=== PATIENT | male | born 1990 | race Caucasian/White ===

== ENCOUNTER 2021-12-06 15:54 | Outpatient (CLI) | payer OTHER, SELFPAY ==
--- NOTE | ~2021-12-06 | MR_ITS ---
EXAMINATION: MR knee RT wo con DATE: 12/06/2021 16:46 INDICATION: Right knee pain x3 weeks. Walking down stairs and heard a popping sound followed by pain. TECHNIQUE: Magnetic resonance imaging (MRI) of the right knee was performed without intravenous contr ast. Sequences included axial PD-weighted FS FSE, coronal PD-weighted FSE and PD-weighted FS FSE, sag ittal PD-weighted FSE, and sagittal T2-weighted FS FSE. COMPARISON: None. FINDINGS: Medial compartment: Meniscus and cartilage intact. Lateral compartment: Meniscus and cartilage intact. Patellofemoral compartment: Mild partial thickness cartilage signal abnormality. Retinacula intact. Ligaments and tendons: Intact. Fluid: No significant joint effusion or fluid collection. Osseous/other: 1.4 x 0.6 cm nonaggressive appearing medullary lesion in the metadiaphysis of the distal right femur. Marrow signal is otherwise benign and homogenous. IMPRESSION: 1. 1.4 cm nonaggressive appearing medullary lesion in distal right femur, which may represent a small bone infarct or enchondroma. Recommend radiographs of the right knee for further characterization. 2. No internal derangement. Reviewed, dictated and finalized at location K. IMPRESSION: 1. 1.4 cm nonaggressive appearing medullary lesion in distal right femur, which may represent a small bone infarct or enchondroma. Recommend radiographs of th e right knee for further characterization. 2. No internal derangement.
== END 2021-12-06 15:55 ==
PROVIDERS: PCP Internal Medicine; Visit Provider Nurse Practitioner Family
DX: M25.561 Pain in right knee (principal)
CPT/HCPCS: 73721

== ENCOUNTER 2023-09-06 15:25 | Observation (INO) | payer OTHER, SELFPAY ==
[2023-09-06 15:57] VITALS: BP 143/87; PULSE 100; RESP 15; TEMP 36.4; O2SAT 97
--- NOTE | 2023-09-06 15:59 | ED.EXTPRO ---
HPI - Extremity Problem General Chief complaint: Wound/Laceration <ALISHA Sánchez Last Filed: 09/11/23 10:16> Stated complaint: spider bite to leg <ALISHA Sánchez Last Filed: 09/11/23 10:16> Time Seen by Provider: 09/06/23 15:59 <Anna Childers PA-C - Last Filed: 09/11/23 10:16> Focused HPI: This is a 33-year-old male that presents to the emergency department for left lower extremity redness and swelling. Ongoing since yesterday. Reports he thought he was maybe bitten by a spider. Reports the redness has continued to spread which prompted him to be seen. Denies fevers. GENERAL: Well-appearing, well-nourished, and in no acute distress. HEAD: Normocephalic, atraumatic. CHEST: Clear to auscultation. ?No respiratory distress. HEART: Regular rate and rhythm.? NEURO: ?Alert and oriented x3. Patient screened in triage and initial orders placed.? ?Additional care and disposition to be based upon?diagnostic testing and treatment. <Anna Childers PA-C - Last Filed: 09/11/23 10:16> History of Present Illness HPI Narrative: 33-year-old male presents to the emergency department for redness, swelling and pain to his left knee that extends up his leg and concern for a spider bite. Patient states yesterday around 2 in afternoon he was working outside when he leaned up against something in the garage and felt a tender spot. Since then he has had developing redness and warmth that has spread up his leg. he abi a line around the redness this afternoon and and has significantly spread since which prompted him to come to the ED. He denies fever or vomiting but does endorse some nausea and fatigue. Last Tdap is unknown. <Sarah Chance PA-C - Last Filed: 09/06/23 18:50> Related Data Allergies/Adverse reactions: Allergies Allergy/AdvReac Type Severity Reaction Status Date / Time No Known Allergies Allergy Unverified 09/10/23 14:01 <ALISHA Sánchez Last Filed: 09/11/23 10:16> Review of Systems Review of Systems: CONSTITUTIONAL: Denies fever, chills, or sweats. EYES: Denies visual changes, redness, or discharge. ENT: Denies rhinorrhea, congestion, sore throat, or otalgia. CARDIOVASCULAR: Denies chest pain, palpitations, or edema. RESPIRATORY: Denies cough or dyspnea. GASTROINTESTINAL: Denies abdominal pain, nausea, vomiting, or diarrhea. GENITOURINARY: Denies dysuria or hematuria. SKIN: See HPI MUSCULOSKELETAL: Denies back pain, joint pain, or myalgia. NEUROLOGIC: Denies headache, numbness, or weakness. PSYCHIATRIC: Denies anxiety or depression. <Sarah Chance PA-C - Last Filed: 09/06/23 18:50> FORMERLY [facility], [facility] Past Medical History Medical History: Medical History (Updated 09/10/23 @ 14:14 by Antoinette Garcia PA-C) PAULIE (generalized anxiety disorder) IFG (impaired fasting glucose) <Anna Childers PA-C - Last Filed: 09/11/23 10:16> Surgical History Surgical History: Surgical History History of arthroscopic knee surgery right <Anna Childers PA-C - Last Filed: 09/11/23 10:16> Family History Family History: Family History Mother Hypertension Depression Sibling Heart disease Depression <Anna Childers PA-C - Last Filed: 09/11/23 10:16> Social History Social History: Social History Smoking status: Never smoker Second hand tobacco smoke exposure: No Alcohol intake: current Drinks per week: 8 Substance use: current Substance use type: marijuana Last use: 4 days ago Do You Feel Safe in your Home?: Yes Lack of Transportation: No Lack of Food: Never True Current Housing: I Have Housing Concerned About Future Housing: No Difficulty Paying Gas/Electric Bills: No Difficulty Paying for Meds: No Currently Unemployed: No Education: Associate Deg
[2023-09-06 17:08] LABS: Basophils Percent Auto 0.2 % (0.2-1.2); Eosinophils Absolute Auto 0.7 K/mm3 (0-0.3); Eosinophils Percent Auto 8.5 % (0-4.4); Hematocrit 43.7 % (42.0-52.0); Immature Granulocyte Absolute 0.02 K/mm3 (0.00-0.031); Immature Granulocyte Percent A 0.2 % (0-0.5); Lymphocytes Absolute Auto 1.57 K/mm3 (0.9-3.2); Lymphocytes Percent Auto 18.9 % (18.3-44.2); Mean Corpuscular HGB Conc 34.3 g/dl (32-36); Mean Corpuscular Hemoglobin 29.6 pg (26-34); Mean Corpuscular Volume 86.4 fl (80-100); Mean Platelet Volume 10.3 fl (7.4-10.4); Monocytes Absolute Auto 0.6 K/mm3 (0.1-0.6); Monocytes Percent Auto 6.6 % (2.6-8.5); Neutrophils Absolute Auto 5.5 K/mm3 (1.3-6.7); Neutrophils Percent Auto 65.6 % (45.5-73.1); Platelet Count Result 247 k/mm3 (150-375); Red Blood Count 5.06 M/mm3 (4.6-6.20); Red Cell Distribution Width 11.9 % (11.5-14.5); White Blood Count 8.3 K/mm3 (4.5-10.0)
[2023-09-06 17:20] LABS: Anion Gap 12 mmol/L (4-12); Blood Urea Nitrogen 14 mg/dL (9-20); CRP 4.4 mg/dL (<1.0); Calcium 9.4 mg/dL (8.4-10.2); Carbon Dioxide 25 mmol/L (22-30); Chloride 104 mmol/L (98-107); Estimated CRCL calculation 114 ml/min; Estimated Glomerular Filt Rate > 60; Glucose 146 mg/dL (65-110); Sodium 141 mmol/L (137-145)
[2023-09-06 18:02] LABS: Erythrocyte Sedimentation Rate 14 mm/hr (0-20)
[2023-09-06] MEDS: TETANUS,DIPHTHERIA,AC PERTUSSIS ADULT (0.5 ML) BOOSTRIX IM (19:13)
[2023-09-06] MEDS: ceFAZolin 1 GM/NS 50 ML 1 GM/50 ML BAG IVPB (19:14)
--- NOTE | 2023-09-06 19:16 | PM.IMHP ---
H&P: HPI History of Present Illness Date/Time: 09/06/23 19:16 Chief Complaint: Wound to Lower Extremity Narrative: 33 y/o M presents here with a wound to his LLE with PMH of PAULIE. The patient presents here from home for further evaluation of a wound to his LLE. Patient believes the wound may be due to a spider bite. First noted the wound on 09/04 . 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 PAtient then went to the restroom to insept the area and noted a welt the size of a quarter to his left knee without head to region or drainage around 2 pm. Patient then abi a line to [facility] this morning around 0800 and later today noted around 3 pm that the redness had tracked up his thigh prompting him to seek care. Wound accompanied by intermittent/mild diaphoresis. Denying fever, chills, or body aches. TDap was updated, unknown when last had vaccination. Initial VS at presentation: 97.6? F, HR 100, RR 15, 143/87, 97% on RA. ED workup showed: Clear no leukocytosis, no anemia, no significant electrolyte derangements, creatinine 0.9 and GFR >60, glucose 146, and CRP 4.4. Review of Systems Review of Systems: All systems reviewed & are unremarkable except as noted in HPI and below PMFSH Past Medical History Medical History PAULIE (generalized anxiety disorder) Surgical History Surgical History History of arthroscopic knee surgery right Family History Family History Mother Hypertension Depression Sibling Heart disease Depression Social History Social History Smoking status: Never smoker Second hand tobacco smoke exposure: No Alcohol intake: current Drinks per week: 8 Substance use: current Substance use type: marijuana Last use: 4 days ago Do You Feel Safe in your Home?: Yes Lack of Transportation: No Lack of Food: Never True Current Housing: I Have Housing Concerned About Future Housing: No Difficulty Paying Gas/Electric Bills: No Difficulty Paying for Meds: No Currently Unemployed: No Education: Associate Degree Difficulty w/ Childcare or Family Care: No Living arrangements: with family Occupation/Education: occupation Gender identity (if verbalized by the patient): Male Spiritual care concerns: No Meds Home Medications and Allergies Home Medications Medication Instructions Recorded Confirmed Type buspirone 7.5 mg tablet 7.5 mg PO BID #180 tabs 07/12/23 09/06/23 Rx escitalopram oxalate 10 mg tablet 10 mg PO DAILY #90 tabs 07/17/23 09/06/23 Rx (Lexapro) Allergies Allergy/AdvReac Type Severity Reaction Status Date / Time No Known Allergies Allergy Unverified 07/11/23 15:31 Vital Signs Vital Signs - 24 hr 09/06/23 15:57 Temperature 97.6 F Pulse Rate 100 Respiratory Rate 15 Blood Pressure 143/87 H Pulse Oximetry 97 Oxygen Delivery Room Air Exam Const: General: comfortable and no acute distress Other: , male, nontoxic appearance HENMT: Face/Nose/Sinus: Normal nares present Mouth: Yes moist mucous membranes Eyes: General: appearance normal, both eyes and all related structures Sclera: sclerae normal Pupils: Equal, round and reactive pupils present Resp: Effort & Inspection: normal respiratory effort Auscultation: clear to auscultation bilaterally Cardio: Rate: regular rate Rhythm: regular rhythm Skin: General skin exam: normal color and erythema Other: 2 small shallow puncture wounds to left knee with surrounding erythema with poor demarcation line that extends to anterior thigh up to groin. Neuro: Speech: normal speech Motor exam (neuro): 5/5 motor strength present thro
[2023-09-06 19:21] LABS: Lactic Acid Reflex 0.9 mmol/L (0.7-2.0)
[2023-09-06 20:03] VITALS: BP 131/89; PULSE 99; RESP 18; TEMP 37.3; O2SAT 100
[2023-09-06 20:50] LABS: Hemoglobin A1C 5.9 % (<5.7)
[2023-09-06 21:00] VITALS: BP 155/85; PULSE 87; RESP 14; TEMP 36.9; O2SAT 98; BMI 30.4
--- NOTE | 2023-09-06 21:00 | ADMGEN ---
This patient, Mamta Luis III, was admitted to [facility] Surg Room 329-01. Patient/family oriented to hospital policies and general routines including ID bracelet, bed and alarms, visiting hours, pain management, procedures, bathroom and other care routines, personal items, smoking policy, room service/diet, and visiting hours. Information on how to activate the Rapid Response Team has been discussed. Patient/Family are encouraged to report perceived risks to care and to ask questions if they do not understand what they are told or what they should do.
[2023-09-06] MEDS: KETOROLAC 30 MG/ML VIAL (*BKC) IV PUSH (22:17)
[2023-09-07] MEDS: ceFAZolin 1 GM/NS 50 ML 1 GM/50 ML BAG IVPB ×3 (02:47→18:33)
[2023-09-07 05:55] VITALS: BP 105/60; PULSE 76; RESP 12; TEMP 36.7; O2SAT 98
[2023-09-07 06:51] LABS: Basophils Percent Auto 0.3 % (0.2-1.2); Eosinophils Absolute Auto 0.8 K/mm3 (0-0.3); Eosinophils Percent Auto 7.3 % (0-4.4); Hematocrit 41.3 % (42.0-52.0); Hemoglobin 13.9 g/dL (14.0-18.0); Immature Granulocyte Absolute 0.02 K/mm3 (0.00-0.031); Immature Granulocyte Percent A 0.2 % (0-0.5); Lymphocytes Absolute Auto 1.74 K/mm3 (0.9-3.2); Lymphocytes Percent Auto 16.8 % (18.3-44.2); Mean Corpuscular HGB Conc 33.7 g/dl (32-36); Mean Corpuscular Hemoglobin 29.4 pg (26-34); Mean Corpuscular Volume 87.3 fl (80-100); Mean Platelet Volume 10.2 fl (7.4-10.4); Monocytes Absolute Auto 0.8 K/mm3 (0.1-0.6); Neutrophils Percent Auto 67.4 % (45.5-73.1); Platelet Count Result 248 k/mm3 (150-375); Red Blood Count 4.73 M/mm3 (4.6-6.20); Red Cell Distribution Width 11.8 % (11.5-14.5); White Blood Count 10.4 K/mm3 (4.5-10.0)
[2023-09-07 07:07] LABS: Alanine Aminotransferase 29 U/L (6-50); Albumin Level 4.5 g/dL (3.5-5.1); Alkaline Phosphatase 73 U/L (38-126); Anion Gap 8 mmol/L (4-12); Aspartate Amino Transferase 24 U/L (17-59); Bilirubin,Total 0.9 mg/dL (0.2-1.3); Blood Urea Nitrogen 17 mg/dL (9-20); CRP 5.3 mg/dL (<1.0); Calcium 9.1 mg/dL (8.4-10.2); Carbon Dioxide 26 mmol/L (22-30); Chloride 104 mmol/L (98-107); Estimated CRCL calculation 114 ml/min; Estimated Glomerular Filt Rate > 60; Glucose 131 mg/dL (65-110); Potassium 4.3 mmol/L (3.4-5.0); Sodium 138 mmol/L (137-145)
[2023-09-07] MEDS: ESCITALOPRAM OXALATE 10 MG TABLET PO (08:53)
[2023-09-07] MEDS: busPIRone HCL 5 MG TABLET PO ×2 (08:53→16:48)
[2023-09-07] MEDS: busPIRone HCL 2.5 MG TABLET PO ×2 (08:54→16:48)
[2023-09-07] MEDS: HYDROcodone/acetaminophen (*CRX) 5-325 MG TABLET 1 TAB PO ×2 (08:57→20:29)
--- NOTE | 2023-09-07 09:41 | PM.IMPN ---
Progress Note: A&P Assessment and Plan (1) Cellulitis: Qualifiers: Laterality: left Site of cellulitis: extremity Site of cellulitis of extremity: lower extremity Qualified Code(s): L03.116 - Cellulitis of left lower limb Code(s): L03.90 - Cellulitis, unspecified Status: Acute Assessment and Plan: - did not meet SIRS criteria (HR only), blood cultures were obtained - initial injury/bite unknown, discovered on 09/05 - started on Ancef on 09/05 - wound culture ordered if obtainable - wound marked to track progression of erythema - IV fluids - monitor labs (2) Hyperglycemia: Code(s): R73.9 - Hyperglycemia, unspecified Status: Acute Assessment and Plan: - glucose 147 - check A1C: 5.9% - no prior hx of DM, FH of DM (paternal grandfather, believes there are more) - educated on A1C level and prediabetes diagnosis, provided education on lifestyle modifications to help reduce his A1C Plan Patient here with wound his left leg that he sustained yesterday (09/04) and has been rapidly spreading. Ancef started. Wound culture ordered if obtainable. educated on new diagnosis of prediabetes. Diet: heart healthy GI Prophylaxis: not currently indicated DVT Prophylaxis: low risk Lines: peripheral Code Status: full code Time Spent With Patient Time with patient: 25 - 35 minutes Subjective Date/time seen: 09/07/23 09:41 Interval history: 33 y/o M with PAULIE admitted for LLE wound. note retrieved from h/p: The patient presents here from home for further evaluation of a wound to his LLE. Patient believes the wound may be due to a spider bite. First noted the wound on 09/04 . 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 Patient then went to the restroom to insept the area and noted a welt the size of a quarter to his left knee without head to region or drainage around 2 pm. Patient then abi a line to [facility] this morning around 0800 and later today noted around 3 pm that the redness had tracked up his thigh prompting him to seek care. Wound accompanied by intermittent/mild diaphoresis. Denying fever, chills, or body aches. TDap was updated, unknown when last had vaccination. Initial VS at presentation: 97.6? F, HR 100, RR 15, 143/87, 97% on RA. ED workup showed: Clear no leukocytosis, no anemia, no significant electrolyte derangements, creatinine 0.9 and GFR >60, glucose 146, and CRP 4.4. 09/06- pt is seen and examined today. On IV ancef (start day09/05). Wound is marked. Pt is alert, pain, free, no chest pain, no sob, no n/v/d. Review of Systems Review of Systems: All systems reviewed & are unremarkable except as noted in HPI and below Exam Const: General: comfortable and no acute distress Other: , male, nontoxic appearance HENMT: Face/Nose/Sinus: Normal nares present Mouth: Yes moist mucous membranes Eyes: General: appearance normal, both eyes and all related structures Sclera: sclerae normal Pupils: Equal, round and reactive pupils present Resp: Effort & Inspection: normal respiratory effort Auscultation: clear to auscultation bilaterally Cardio: Rate: regular rate Rhythm: regular rhythm Skin: General skin exam: normal color and erythema Other: 2 small shallow puncture wounds to left knee with surrounding erythema with poor demarcation line that extends to anterior thigh up to groin. Neuro: Cranial nerves: Yes Equal, round and reactive pupils present Speech: normal speech Motor exam (neuro): 5/5 motor strength present throughout Sensory Exam: normal sensation Other: A&O x4 Extrem: General: normal exam except as noted Psych: Mental Status: mental status grossly normal Affect: normal affect Other: good insight judgment, pleasant Objective Data Vital Signs Vital Signs: Vital Signs - 24 hr 09/06/23 15:57 06
[2023-09-07] MEDS: hydrOXYzine HCL 10 MG TABLET PO (13:16)
[2023-09-07 14:00] VITALS: BP 151/86; PULSE 95; RESP 20; TEMP 36.8; O2SAT 92
[2023-09-07] MEDS: ACETAMINOPHEN 500 MG TABLET PO (15:49)
[2023-09-07 21:26] VITALS: BP 126/73; PULSE 84; RESP 16; TEMP 36.2; O2SAT 98
--- NOTE | 2023-09-07 22:45 | PC.NURSE ---
I have read and reviewed Inge Saleh's assessment and agree with her documentation.
[2023-09-08] MEDS: ceFAZolin 1 GM/NS 50 ML 1 GM/50 ML BAG IVPB ×2 (02:55→09:36)
[2023-09-08 06:00] VITALS: BP 120/65; PULSE 80; RESP 16; TEMP 36.4; O2SAT 99
[2023-09-08 08:00] VITALS: PULSE 80; RESP 16; O2SAT 99
--- NOTE | 2023-09-08 09:26 | PM.IMPN ---
Progress Note: A&P Assessment and Plan (1) Cellulitis: Qualifiers: Laterality: left Site of cellulitis: extremity Site of cellulitis of extremity: lower extremity Qualified Code(s): L03.116 - Cellulitis of left lower limb Code(s): L03.90 - Cellulitis, unspecified Status: Acute Assessment and Plan: - did not meet SIRS criteria (HR only), blood cultures were obtained - initial injury/bite unknown, discovered on 09/05 - started on Ancef on 09/05 - wound culture ordered if obtainable - wound marked to track progression of erythema - IV fluids - monitor labs (2) Hyperglycemia: Code(s): R73.9 - Hyperglycemia, unspecified Status: Acute Assessment and Plan: - glucose 147 - check A1C: 5.9% - no prior hx of DM, FH of DM (paternal grandfather, believes there are more) - educated on A1C level and prediabetes diagnosis, provided education on lifestyle modifications to help reduce his A1C Plan Patient here with wound his left leg that he sustained yesterday (09/04) and has been rapidly spreading. Ancef started. Wound culture ordered if obtainable. educated on new diagnosis of prediabetes. Diet: heart healthy GI Prophylaxis: not currently indicated DVT Prophylaxis: low risk Lines: peripheral Code Status: full code Time Spent With Patient Time with patient: 25 - 35 minutes Subjective Date/time seen: 09/08/23 09:26 Interval history: 33 y/o M with PAULIE admitted for LLE wound. note retrieved from h/p: The patient presents here from home for further evaluation of a wound to his LLE. Patient believes the wound may be due to a spider bite. First noted the wound on 09/04 . 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 Patient then went to the restroom to inspect the area and noted a felt the size of a quarter to his left knee without head to region or drainage around 2 pm. Patient then abi a line to [facility] this morning around 0800 and later today noted around 3 pm that the redness had tracked up his thigh prompting him to seek care. Wound accompanied by intermittent/mild diaphoresis. Denying fever, chills, or body aches. TDap was updated, unknown when last had vaccination. Initial VS at presentation: 97.6? F, HR 100, RR 15, 143/87, 97% on RA. ED workup showed: Clear no leukocytosis, no anemia, no significant electrolyte derangements, creatinine 0.9 and GFR >60, glucose 146, and CRP 4.4. 09/06- pt is seen and examined today. On IV ancef (start day09/05). Wound is marked. Pt is alert, pain, free, no chest pain, no sob, no n/v/d. 09/07- pt is seen and examined. Slight increase in wbc and crp. BLood cultures negative. On cefazolin Review of Systems Review of Systems: All systems reviewed & are unremarkable except as noted in HPI and below Exam Const: General: comfortable and no acute distress Other: , male, nontoxic appearance HENMT: Face/Nose/Sinus: Normal nares present Mouth: Yes moist mucous membranes Eyes: General: appearance normal, both eyes and all related structures Sclera: sclerae normal Pupils: Equal, round and reactive pupils present Resp: Effort & Inspection: normal respiratory effort Auscultation: clear to auscultation bilaterally Cardio: Rate: regular rate Rhythm: regular rhythm Skin: General skin exam: normal color and erythema Other: 2 small shallow puncture wounds to left knee with surrounding erythema with poor demarcation line that extends to anterior thigh up to groin. Neuro: Cranial nerves: Yes Equal, round and reactive pupils present Speech: normal speech Motor exam (neuro): 5/5 motor strength present throughout Sensory Exam: normal sensation Other: A&O x4 Extrem: General: normal exam except as noted Psych: Mental Status: mental status grossly normal Affect: normal affect Other: good insight judgm
[2023-09-08] MEDS: busPIRone HCL 5 MG TABLET PO (09:36)
[2023-09-08] MEDS: ESCITALOPRAM OXALATE 10 MG TABLET PO (09:36)
[2023-09-08] MEDS: busPIRone HCL 2.5 MG TABLET PO (09:36)
[2023-09-08] MEDS: SACCHAROMYCES BOULARDII 250 MG CAPSULE PO (12:52)
--- NOTE | 2023-09-08 12:55 | PM.DS ---
DS: Admitting Diagnosis Discharge Date 09/07 Admitting Diagnosis spider bite DS: Discharge Diagnosis Discharge Diagnosis (1) Cellulitis: Qualifiers: Laterality: left Site of cellulitis: extremity Site of cellulitis of extremity: lower extremity Qualified Code(s): L03.116 - Cellulitis of left lower limb Code(s): L03.90 - Cellulitis, unspecified Status: Acute Assessment and Plan: - did not meet SIRS criteria (HR only), blood cultures were obtained - initial injury/bite unknown, discovered on 09/05 - started on Ancef on 09/05 - wound culture ordered if obtainable - wound marked to track progression of erythema - IV fluids-switched to po - monitor labs (2) Hyperglycemia: Code(s): R73.9 - Hyperglycemia, unspecified Status: Acute Assessment and Plan: - glucose 147 - check A1C: 5.9% - no prior hx of DM, FH of DM (paternal grandfather, believes there are more) - educated on A1C level and prediabetes diagnosis, provided education on lifestyle modifications to help reduce his A1C Plan final dx: CELLULITIS Patient here with wound his left leg that he sustained yesterday (09/04) and has been rapidly spreading. Ancef started. Wound culture ordered if obtainable. educated on new diagnosis of prediabetes. Diet: heart healthy GI Prophylaxis: not currently indicated DVT Prophylaxis: low risk Lines: peripheral Code Status: full code DS: Summary Hospital Course Hospital Course: The patient presents here from home for further evaluation of a wound to his LLE. Patient believes the wound may be due to a spider bite. First noted the wound on 09/04 . 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 Patient then went to the restroom to insept the area and noted a welt the size of a quarter to his left knee without head to region or drainage around 2 pm. Patient then abi a line to [facility] this morning around 0800 and later today noted around 3 pm that the redness had tracked up his thigh prompting him to seek care. Wound accompanied by intermittent/mild diaphoresis. Denying fever, chills, or body aches. TDap was updated, unknown when last had vaccination. Initial VS at presentation: 97.6? F, HR 100, RR 15, 143/87, 97% on RA. ED workup showed: Clear no leukocytosis, no anemia, no significant electrolyte derangements, creatinine 0.9 and GFR >60, glucose 146, and CRP 4.4. 09/06- pt is seen and examined today. On IV ancef (start day09/05). Wound is marked. Pt is alert, pain, free, no chest pain, no sob, no n/v/d. Status at Discharge Functional status at discharge: independent ambulation Overall status at discharge: patient is back to baseline Time Spent with Patient Time attestation: Total time spent providing and/or coordinating discharge services: Time spent: Less than 30 minutes Exam Narrative: erythema is improving Const: General: comfortable and no acute distress Other: , male, nontoxic appearance HENMT: Face/Nose/Sinus: Normal nares present Mouth: Yes moist mucous membranes Eyes: General: appearance normal, both eyes and all related structures Sclera: sclerae normal Pupils: Equal, round and reactive pupils present Resp: Effort & Inspection: normal respiratory effort Auscultation: clear to auscultation bilaterally Cardio: Rate: regular rate Rhythm: regular rhythm Skin: General skin exam: normal color and erythema Other: 2 small shallow puncture wounds to left knee with surrounding erythema- improved about 50-70% from the original presentation Neuro: Cranial nerves: Yes Equal, round and reactive pupils present Speech: normal speech Motor exam (neuro): 5/5 motor strength present throughout Sensory Exam: normal sensation Other: A&O x4 Extrem: General: normal exam except as noted Psych: Mental Status: mental status grossly norm
[2023-09-08 14:00] VITALS: BP 141/84; PULSE 84; RESP 14; TEMP 36.2; O2SAT 97
== END 2023-09-08 15:00 | disposition home or self-care (01) ==
LOC: ANHED 18:48 → ANH3MEDSUR 20:43
PROVIDERS: Physician Assistant; Student in an Organized Health Care Education/Training Program; Admitting Provider Hospitalist; Emergency Provider Physician Assistant; PCP Family Medicine; Visit Provider Hospitalist
DX: L03.116 Cellulitis of left lower limb (principal); R73.9 Hyperglycemia, unspecified; Z23 Encounter for immunization
CPT/HCPCS: 36415; 80048; 80053; 83036; 83605; 85025; 85652; 86140; 87040; 90471; 90715; 96365; 96375; 96376; 99285; A9270; G0378; J0690; J1885

== ENCOUNTER 2023-09-13 14:58 | Outpatient (CLI) | payer OTHER, SELFPAY ==
[2023-09-13 15:27] LABS: Basophils Absolute Auto 0.1 K/mm3 (0.0-0.1); Basophils Percent Auto 1.2 % (0.2-1.2); Eosinophils Absolute Auto 1.3 K/mm3 (0-0.3); Eosinophils Percent Auto 16.5 % (0-4.4); Hemoglobin 13.6 g/dL (14.0-18.0); Immature Granulocyte Absolute 0.03 K/mm3 (0.00-0.031); Immature Granulocyte Percent A 0.4 % (0-0.5); Lymphocytes Percent Auto 33.5 % (18.3-44.2); Mean Corpuscular Hemoglobin 29.4 pg (26-34); Mean Corpuscular Volume 86.6 fl (80-100); Mean Platelet Volume 10.3 fl (7.4-10.4); Monocytes Absolute Auto 0.6 K/mm3 (0.1-0.6); Monocytes Percent Auto 7.2 % (2.6-8.5); Neutrophils Absolute Auto 3.3 K/mm3 (1.3-6.7); Neutrophils Percent Auto 41.2 % (45.5-73.1); Platelet Count Result 324 k/mm3 (150-375); Red Blood Count 4.62 M/mm3 (4.6-6.20); Red Cell Distribution Width 11.7 % (11.5-14.5); White Blood Count 8.1 K/mm3 (4.5-10.0)
== END 2023-09-13 14:59 | disposition home or self-care (01) ==
LOC: ANHLAB 14:59
PROVIDERS: PCP Family Medicine; Visit Provider Physician Assistant Medical
DX: D72.829 Elevated white blood cell count, unspecified (principal); L03.90 Cellulitis, unspecified
CPT/HCPCS: 36415; 85025

== ENCOUNTER 2023-12-07 08:34 | Outpatient (CLI) | payer OTHER, SELFPAY ==
[2023-12-07 09:17] LABS: Basophils Absolute Auto 0.1 K/mm3 (0.0-0.1); Basophils Percent Auto 0.8 % (0.2-1.2); Eosinophils Absolute Auto 0.4 K/mm3 (0-0.3); Eosinophils Percent Auto 5.8 % (0-4.4); Hematocrit 43.3 % (42.0-52.0); Hemoglobin 14.4 g/dL (14.0-18.0); Immature Granulocyte Absolute 0.01 K/mm3 (0.00-0.031); Immature Granulocyte Percent A 0.2 % (0-0.5); Lymphocytes Absolute Auto 2.17 K/mm3 (0.9-3.2); Lymphocytes Percent Auto 35.9 % (18.3-44.2); Mean Corpuscular HGB Conc 33.3 g/dl (32-36); Mean Corpuscular Hemoglobin 29.6 pg (26-34); Mean Corpuscular Volume 89.1 fl (80-100); Mean Platelet Volume 10.3 fl (7.4-10.4); Monocytes Absolute Auto 0.4 K/mm3 (0.1-0.6); Monocytes Percent Auto 6.6 % (2.6-8.5); Neutrophils Absolute Auto 3.1 K/mm3 (1.3-6.7); Neutrophils Percent Auto 50.7 % (45.5-73.1); Platelet Count Result 285 k/mm3 (150-375); Red Blood Count 4.86 M/mm3 (4.6-6.20); Red Cell Distribution Width 11.9 % (11.5-14.5)
[2023-12-07 11:33] LABS: Iron 114 ug/dL (49-181)
[2023-12-07 11:48] LABS: Percent Iron Saturation 31 % (20-50)
== END 2023-12-07 08:35 | disposition home or self-care (01) ==
LOC: ANHLAB 08:36
PROVIDERS: PCP Family Medicine; Referring Provider Student in an Organized Health Care Education/Training Program; Visit Provider Physician Assistant Medical
DX: E03.9 Hypothyroidism, unspecified (principal); D64.9 Anemia, unspecified; R53.83 Other fatigue
CPT/HCPCS: 36415; 82607; 82728; 83540; 83550; 84443; 85025

== ENCOUNTER 2024-05-08 15:36 | Outpatient (CLI) | payer OTHER, SELFPAY ==
--- OUTSIDE RECORDS SUMMARY | 2024-05-08 15:39 | XMS_ITS ---
Author Organization [facility] As The Author Hub Address [address] [facility] [address] [place] [address] Care Team Providers Care Railcar Switcher Name Role Phone Fadi Ramirez MD Primary Care Provider Kate Barrios Unavailable [phone] REAL HARMON PA-C Unavailab le Allergies No Known Allergies REASON FOR VISIT fmla, last couple weeks have been a little rough Medications Medication SIG (Take, Route, Frequency, Duration) Notes Start Date End Date Status oxyCODONE HCl 5 MG Oral for 6 Days Not-Taking HYDROcodone-Acetamino phen 5-325 MG TAKE 1-2 TABLETS BY MOUTH EVERY 8 HOURS NEEDED FOR PAIN Oral for 6 Days Not-Taking oxyCODONE HCl 5 MG TAKE 1-2 TABLETS BY MOUTH EVERY 6 HOURS NEEDED FOR PAIN Oral for 6 Days Not-Taking Meloxicam 15 MG TAKE 1 TABLET BY MOUTH EVERY DAY Oral for 30 Days Not-Taking HYDROcodone-Acetamino phen 5-325 MG Oral for 6 Days Not-Taking Sulfamethoxazole-Trim ethoprim 800-160 MG Oral for 5 Days Not-T aking Escitalopram Oxalate 10 MG TAKE 1 TABLET BY MOUTH DAILY Oral for 30 Days Not-Taking Venlafaxine HCl ER 37.5 MG 1 capsule with food Orally Once a day for 14 days 11/09/2023 Not-Taking Sulfamethoxazole-Trim ethoprim 800-160 MG TAKE 1 TABLET BY MOUTH EVERY 12 HOURS Oral for 5 Days Not-Taking busPIRone HCl 10 MG 1 tablet Oral three times a day for 90 days 11/15/2023 07/13/2024 Active Escitalopram Oxalate 20 MG 1 tablet Oral once a day for 90 days Active Venlafaxine HCl ER 75 MG 1 capsule in the morning Orally Once a day for 90 days Active hydrOXYzine HCl 25 MG 1 tablet Orally three times a day for 90 days As needed Active Meloxicam 15 MG 1 tablet Oral Once a day for 30 days Active ARIPiprazole 5 MG 1 tablet Orally Once a day for 30 days d/c Seroquel 05/06/2024 Active Social History Tobacco Use: Social History Observation Description Date Details (start date - stop date) Never Smoker NA - NA Sex Assigned At : Social History Observation Description Sex Assigned At Male Household Question Answer Notes Marital status: single Number of adults in household: 2 l maira with mother Number of children in household: 0 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 Yes How often did you have six o r more drinks on one occasion in the past year? 2 to 4 times a month (2 points) How many drinks did you have on a typical day when you were drinking in the past year? 10 or more drinks (4 points) How often did you have a dri nk containing alcohol in the past year? 2 to 4 times a month (2 points) Points 8 Interpretation Positive Vital Signs Blood pressure systolic 137 mm Hg 05/06/19 25 Blood pressure diastolic 95 mm Hg 025 Heart Rate 92 /min 05/06/2024 Height 69 in 05/06/2024 Weight 216.8 lbs 05/06/2024 BMI 32.01 kg/m2 05/06/2024 Height-cm 175.26 cm 05/06/2024 Weight-kg 98.34 kg 05/06/2024 Encounters Encounter Location Date Provider Diagnosis [facility] [employer] [facility] [address] [address] 05/06/2024 Kate Black PAULIE (generalized anxiety disorder) F41.1 ; MDD (major depressive disorder), recurrent episode, moderate F33.1 ; Primary insomnia F51.01 ; Marijuana use F12.90 ; Panic attack F41.0 and Elevated blood pressure reading R03.0 Assessments Encounter Date Diagnosis (ICD Code) Assessment Notes Treatment Notes Treatment Clinical Notes Section Notes 05/06/2024 PAULIE (generalized anxiety disorder) (ICD-10 - F41.1) Learning About Generalized Anxiety Disorder material was published, Generalized Anxiety Disorder: Care Instructions material was published, Learning About Transcranial Magnetic Stimulation (TMS) material was published, Learning About Anxiety Disorders material was published 1. Depresison- having increease depression Lexapro 20 mg daily Effexor ER 75 MG daily in am for depresison and anxiety schedule therapy discuss and educated patient reported Seroquel 100 mg at bedtime fatigue in am lowest dose 25 mg dose still tired d/c Seroquel related fatigue in am Add Abilify 5 mg at bedtime for depression, agitation and help anxiety - discuss fatigue with rx educated on all rx monitor B/P 2. Anxiety - Buspar 10 mg three times a day with a meal for anxiety- Vistaril 25 mg up to three times a day PRN hx Vistaril 25 mg - obtain labs PCP 3. Primary Insomnia- sleep hygiene education - Trazodone made him feel tired in am and off next day Melatonin 5 mg OTC AT BEDTIME 4. elevated blood pressure educated on healthy b/p 120/80 monitor b/p at home refer to PCP, Urgent care/ER heart healthy diet and excise limit salt intake limit soda intake and caffiene increase water 5.Cannabis use- educated on decrease to stopping 6. ETOH use- educated on decrease use and risk Recommend decrease/stop cannabis use as it can negatively impact mood, motivation, anxiety, sleep, focus/concentratio n/memory (vigilance, elasticity, processing and attention); can also contribute to development of psychosis. Cannabis/marijuana information: http_s://dana.nih. gov/publications/d rugfacts/cannabis- marijuana http_s://www.TherapeuticsMD/cannabi k-enn-dzgkwgcd-mar ijuana-adhd/ http_s://www.ramírez. org/Xiost-Cbiwhy-G llness/Mental-Heal th-Conditions http_s://psychcent Bilbus.com/depression /djp-fvuqgacyf-dth vzjyc-zy-aluxnfgwc n#treatments http__s://www.nimh .nih.gov/health/to pics/mental-health -medications http__s://www.ramírez .org/About-Mental- Illness/Treatments /Jfyccl-Gsrfkv-Fgc ications educated on all medications, benefits, side effects and risk, and educated on depression, anxiety, and ADHD, mood d/o and educated on compliance of medications, metabolic and movement d/o education appointment's, continue therapy discussion with patient about course of treatment and patient instructions. education on serotonin syndrome Discussed and educated pt regarding benzodiazepines are generally not intended for prolonged use and that use can cause tolerance, dependence, depression, and associated memory issues including dementias (this list is not exhaustive). Benzodiazepine use is generally not recommended concurrently with pain medications and/or other controlled substances educated on all medications, benefits, side effects and risk, and educated on depression, anxiety, and ADHD, mood d/o and educated on compliance of medications, metabolic and movement d/o education appointment is, continue therapy discussion with patient about course of treatment and patient instructions. education on serotonin syndrome SSRI/SNRI side effects discussed including but not limited to, gastric upset, nausea, vomiting, diarrhea and/or constipation, weight changes, sexual side effects including loss of libido, increased suicidal thoughts/behaviors in children and young adults, and serotonin syndrome. Second generation antipsychotics (SGAs) have metabolic syndrome issues with weight gain, increase in prolactin, increased waist circumference, increased lipids, and increased glucose. Thus routine monitoring of weight, metabolic labs, etc. is indicated. A general rank ordering of antipsychotics that have the greatest to the least risk of metabolic effects is olanzapine, quetiapine, risperidone, ziprasidone, and aripiprazole. However, weight gain can occur with all of these drugs and considerable variability exists among patients receiving the same drug regarding the risk of metabolic effects. Anti-psychotic agents not only increase the risk of metabolic disorder, they also increase the risk of CVA, akathisia, and movement disorders including EPS or tardive dyskinesia (more common with first generation antipsychotics) and more. Medication Management and Follow-Up - Plan: - Schedule follow-up appointments every 1-3 months to monitor the patient's response to the medication regimen. - Reinforce the importance of avoiding recreational drug use due to potential neurotoxicity and interactions with prescribed medications. 05/06/2024 MDD (major depressive disorder), recurrent episode, moderate (ICD-10 - F33.1) Preventing Depression From Coming Back: Care Instructions material was published, Learning About Depression material was published, Depression Treatment: Care Instructions material was published, Learning About Depression Screening material was published, Learning About How to Get Help During a Mental Health Crisis material was published 1. Depresison- having increease depression Lexapro 20 mg daily Effexor ER 75 MG daily in am for depresison and anxiety schedule therapy discuss and educated patient reported Seroquel 100 mg at bedtime fatigue in am lowest dose 25 mg dose still tired d/c Seroquel related fatigue in am Add Abilify 5 mg at bedtime for depression, agitation and help anxiety - discuss fatigue with rx educated on all rx monitor B/P 2. Anxiety - Buspar 10 mg three times a day with a meal for anxiety- Vistaril 25 mg up to three times a day PRN hx Vistaril 25 mg - obtain labs PCP 3. Primary Insomnia- sleep hygiene education - Trazodone made him feel tired in am and off next day Melatonin 5 mg OTC AT BEDTIME 4. elevated blood pressure educated on healthy b/p 120/80 monitor b/p at home refer to PCP, Urgent care/ER heart healthy diet and excise limit salt intake limit soda intake and caffiene increase water 5.Cannabis use- educated on decrease to stopping 6. ETOH use- educated on decrease use and risk Recommend decrease/stop cannabis use as it can negatively impact mood, motivation, anxiety, sleep, focus/concentratio n/memory (vigilance, elasticity, processing and attention); can also contribute to development of psychosis. Cannabis/marijuana information: http_s://dana.nih. gov/publications/d rugfacts/cannabis- marijuana http_s://www.TherapeuticsMD/cannabi k-kzc-oevrfnag-mar ijuana-adhd/ http_s://www.ramírez. org/Qjwlv-Jrmmhx-D llness/Mental-Heal th-Conditions http_s://psychcent Bilbus.com/depression /hvu-fpcohpnej-sbd kteoh-jc-chhsdttwk n#treatments http__s://www.nimh .nih.gov/health/to pics/mental-health -medications http__s://www.ramírez .org/About-Mental- Illness/Treatments /Yxskhd-Zicxoa-Xez ications educated on all medications, benefits, side effects and risk, and educated on depression, anxiety, and ADHD, mood d/o and educated on compliance of medications, metabolic and movement d/o education appointment's, continue therapy discussion with patient about course of treatment and patient instructions. education on serotonin syndrome Discussed and educated pt regarding benzodiazepines are generally not intended for prolonged use and that use can cause tolerance, dependence, depression, and associated memory issues including dementias (this list is not exhaustive). Benzodiazepine use is generally not recommended concurrently with pain medications and/or other controlled substances educated on all medications, benefits, side effects and risk, and educated on depression, anxiety, and ADHD, mood d/o and educated on compliance of medications, metabolic and movement d/o education appointment is, continue therapy discussion with patient about course of treatment and patient instructions. education on serotonin syndrome SSRI/SNRI side effects discussed including but not limited to, gastric upset, nausea, vomiting, diarrhea and/or constipation, weight changes, sexual side effects including loss of libido, increased suicidal thoughts/behaviors in children and young adults, and serotonin syndrome. Second generation antipsychotics (SGAs) have metabolic syndrome issues with weight gain, increase in prolactin, increased waist circumference, increased lipids, and increased glucose. Thus routine monitoring of weight, metabolic labs, etc. is indicated. A general rank ordering of antipsychotics that have the greatest to the least risk of metabolic effects is olanzapine, quetiapine, risperidone, ziprasidone, and aripiprazole. However, weight gain can occur with all of these drugs and considerable variability exists among patients receiving the same drug regarding the risk of metabolic effects. Anti-psychotic agents not only increase the risk of metabolic disorder, they also increase the risk of CVA, akathisia, and movement disorders including EPS or tardive dyskinesia (more common with first generation antipsychotics) and more. Medication Management and Follow-Up - Plan: - Schedule follow-up appointments every 1-3 months to monitor the patient's response to the medication regimen. - Reinforce the importance of avoiding recreational drug use due to potential neurotoxicity and interactions with prescribed medications. 05/06/2024 Primary insomnia (ICD-10 - F51.01) Insomnia: Care Instructions material was published, Learning About Sleeping Well material was published 1. Depresison- having increease depression Lexapro 20 mg daily Effexor ER 75 MG daily in am for depresison and anxiety schedule therapy discuss and educated patient reported Seroquel 100 mg at bedtime fatigue in am lowest dose 25 mg dose still tired d/c Seroquel related fatigue in am Add Abilify 5 mg at bedtime for depression, agitation and help anxiety - discuss fatigue with rx educated on all rx monitor B/P 2. Anxiety - Buspar 10 mg three times a day with a meal for anxiety- Vistaril 25 mg up to three times a day PRN hx Vistaril 25 mg - obtain labs PCP 3. Primary Insomnia- sleep hygiene education - Trazodone made him feel tired in am and off next day Melatonin 5 mg OTC AT BEDTIME 4. elevated blood pressure educated on healthy b/p 120/80 monitor b/p at home refer to PCP, Urgent care/ER heart healthy diet and excise limit salt intake limit soda intake and caffiene increase water 5.Cannabis use- educated on decrease to stopping 6. ETOH use- educated on decrease use and risk Recommend decrease/stop cannabis use as it can negatively impact mood, motivation, anxiety, sleep, focus/concentratio n/memory (vigilance, elasticity, processing and attention); can also contribute to development of psychosis. Cannabis/marijuana information: http_s://dana.nih. gov/publications/d rugfacts/cannabis- marijuana http_s://www.TherapeuticsMD/cannabi f-hao-golizaop-mar ijuana-adhd/ http_s://www.ramírez. org/Qyghb-Zvocsi-V llness/Mental-Heal th-Conditions http_s://[employer].com/depression /nof-zxxueuyvm-nar qiduf-xz-eenvfweim n#treatments http__s://www.nimh .nih.gov/health/to pics/mental-health -medications http__s://www.ramírez .org/About-Mental- Illness/Treatments /Ddsrjn-Ginpsj-Dwm ications educated on all medications, benefits, side effects and risk, and educated on depression, anxiety, and ADHD, mood d/o and educated on compliance of medications, metabolic and movement d/o education appointment's, continue therapy discussion with patient about course of treatment and patient instructions. education on serotonin syndrome Discussed and educated pt regarding benzodiazepines are generally not intended for prolonged use and that use can cause tolerance, dependence, depression, and associated memory issues including dementias (this list is not exhaustive). Benzodiazepine use is generally not recommended concurrently with pain medications and/or other controlled substances educated on all medications, benefits, side effects and risk, and educated on depression, anxiety, and ADHD, mood d/o and educated on compliance of medications, metabolic and movement d/o education appointment is, continue therapy discussion with patient about course of treatment and patient instructions. education on serotonin syndrome SSRI/SNRI side effects discussed including but not limited to, gastric upset, nausea, vomiting, diarrhea and/or constipation, weight changes, sexual side effects including loss of libido, increased suicidal thoughts/behaviors in children and young adults, and serotonin syndrome. Second generation antipsychotics (SGAs) have metabolic syndrome issues with weight gain, increase in prolactin, increased waist circumference, increased lipids, and increased glucose. Thus routine monitoring of weight, metabolic labs, etc. is indicated. A general rank ordering of antipsychotics that have the greatest to the least risk of metabolic effects is olanzapine, quetiapine, risperidone, ziprasidone, and aripiprazole. However, weight gain can occur with all of these drugs and considerable variability exists among patients receiving the same drug regarding the risk of metabolic effects. Anti-psychotic agents not only increase the risk of metabolic disorder, they also increase the risk of CVA, akathisia, and movement disorders including EPS or tardive dyskinesia (more common with first generation antipsychotics) and more. Medication Management and Follow-Up - Plan: - Schedule follow-up appointments every 1-3 months to monitor the patient's response to the medication regimen. - Reinforce the importance of avoiding recreational drug use due to potential neurotoxicity and interactions with prescribed medications. 05/06/2024 Marijuana use (ICD-10 - F12.90) Marijuana Use: Care Instructions material was published, Learning About Cannabis Use Disorder material was published 1. Depresison- having increease depression Lexapro 20 mg daily Effexor ER 75 MG daily in am for depresison and anxiety schedule therapy discuss and educated patient reported Seroquel 100 mg at bedtime fatigue in am lowest dose 25 mg dose still tired d/c Seroquel related fatigue in am Add Abilify 5 mg at bedtime for depression, agitation and help anxiety - discuss fatigue with rx educated on all rx monitor B/P 2. Anxiety - Buspar 10 mg three times a day with a meal for anxiety- Vistaril 25 mg up to three times a day PRN hx Vistaril 25 mg - obtain labs PCP 3. Primary Insomnia- sleep hygiene education - Trazodone made him feel tired in am and off next day Melatonin 5 mg OTC AT BEDTIME 4. elevated blood pressure educated on healthy b/p 120/80 monitor b/p at home refer to PCP, Urgent care/ER heart healthy diet and excise limit salt intake limit soda intake and caffiene increase water 5.Cannabis use- educated on decrease to stopping 6. ETOH use- educated on decrease use and risk Recommend decrease/stop cannabis use as it can negatively impact mood, motivation, anxiety, sleep, focus/concentratio n/memory (vigilance, elasticity, processing and attention); can also contribute to development of psychosis. Cannabis/marijuana information: http_s://dana.nih. gov/publications/d rugfacts/cannabis- marijuana http_s://www.TherapeuticsMD/cannabi x-exn-kkqkqynm-mar ijuana-adhd/ http_s://www.ramírez. org/Rkvwu-Blbtxc-H llness/Mental-Heal th-Conditions http_s://[employer].com/depression /vwp-uijkuucxt-jbt zlzjj-wo-xqsbzmuzl n#treatments http__s://www.nimh .nih.gov/health/to pics/mental-health -medications http__s://www.ramírez .org/About-Mental- Illness/Treatments /Bdnsgm-Ntznou-Ccb ications educated on all medications, benefits, side effects and risk, and educated on depression, anxiety, and ADHD, mood d/o and educated on compliance of medications, metabolic and movement d/o education appointment's, continue therapy discussion with patient about course of treatment and patient instructions. education on serotonin syndrome Discussed and educated pt regarding benzodiazepines are generally not intended for prolonged use and that use can cause tolerance, dependence, depression, and associated memory issues including dementias (this list is not exhaustive). Benzodiazepine use is generally not recommended concurrently with pain medications and/or other controlled substances educated on all medications, benefits, side effects and risk, and educated on depression, anxiety, and ADHD, mood d/o and educated on compliance of medications, metabolic and movement d/o education appointment is, continue therapy discussion with patient about course of treatment and patient instructions. education on serotonin syndrome SSRI/SNRI side effects discussed including but not limited to, gastric upset, nausea, vomiting, diarrhea and/or constipation, weight changes, sexual side effects including loss of libido, increased suicidal thoughts/behaviors in children and young adults, and serotonin syndrome. Second generation antipsychotics (SGAs) have metabolic syndrome issues with weight gain, increase in prolactin, increased waist circumference, increased lipids, and increased glucose. Thus routine monitoring of weight, metabolic labs, etc. is indicated. A general rank ordering of antipsychotics that have the greatest to the least risk of metabolic effects is olanzapine, quetiapine, risperidone, ziprasidone, and aripiprazole. However, weight gain can occur with all of these drugs and considerable variability exists among patients receiving the same drug regarding the risk of metabolic effects. Anti-psychotic agents not only increase the risk of metabolic disorder, they also increase the risk of CVA, akathisia, and movement disorders including EPS or tardive dyskinesia (more common with first generation antipsychotics) and more. Medication Management and Follow-Up - Plan: - Schedule follow-up appointments every 1-3 months to monitor the patient's response to the medication regimen. - Reinforce the importance of avoiding recreational drug use due to potential neurotoxicity and interactions with prescribed medications. 05/06/2024 Panic attack (ICD-10 - F41.0) Panic Attacks: Care Instructions material was published 1. Depresison- having increease depression Lexapro 20 mg daily Effexor ER 75 MG daily in am for depresison and anxiety schedule therapy discuss and educated patient reported Seroquel 100 mg at bedtime fatigue in am lowest dose 25 mg dose still tired d/c Seroquel related fatigue in am Add Abilify 5 mg at bedtime for depression, agitation and help anxiety - discuss fatigue with rx educated on all rx monitor B/P 2. Anxiety - Buspar 10 mg three times a day with a meal for anxiety- Vistaril 25 mg up to three times a day PRN hx Vistaril 25 mg - obtain labs PCP 3. Primary Insomnia- sleep hygiene education - Trazodone made him feel tired in am and off next day Melatonin 5 mg OTC AT BEDTIME 4. elevated blood pressure educated on healthy b/p 120/80 monitor b/p at home refer to PCP, Urgent care/ER heart healthy diet and excise limit salt intake limit soda intake and caffiene increase water 5.Cannabis use- educated on decrease to stopping 6. ETOH use- educated on decrease use and risk Recommend decrease/stop cannabis use as it can negatively impact mood, motivation, anxiety, sleep, focus/concentratio n/memory (vigilance, elasticity, processing and attention); can also contribute to development of psychosis. Cannabis/marijuana information: http_s://dana.nih. gov/publications/d rugfacts/cannabis- marijuana http_s://www.TherapeuticsMD/cannabi m-xto-ysbhizej-mar ijuana-adhd/ http_s://www.ramírez. org/Ybwfs-Njfuug-I llness/Mental-Heal th-Conditions http_s://psych[employer].com/depression /hag-deajzprtb-sdt waiam-ij-waldhoqau n#treatments http__s://www.nimh .nih.gov/health/to pics/mental-health -medications http__s://www.ramírez .org/About-Mental- Illness/Treatments /Uwpgcy-Eidmsm-Nmf ications educated on all medications, benefits, side effects and risk, and educated on depression, anxiety, and ADHD, mood d/o and educated on compliance of medications, metabolic and movement d/o education appointment's, continue therapy discussion with patient about course of treatment and patient instructions. education on serotonin syndrome Discussed and educated pt regarding benzodiazepines are generally not intended for prolonged use and that use can cause tolerance, dependence, depression, and associated memory issues including dementias (this list is not exhaustive). Benzodiazepine use is generally not recommended concurrently with pain medications and/or other controlled substances educated on all medications, benefits, side effects and risk, and educated on depression, anxiety, and ADHD, mood d/o and educated on compliance of medications, metabolic and movement d/o education appointment is, continue therapy discussion with patient about course of treatment and patient instructions. education on serotonin syndrome SSRI/SNRI side effects discussed including but not limited to, gastric upset, nausea, vomiting, diarrhea and/or constipation, weight changes, sexual side effects including loss of libido, increased suicidal thoughts/behaviors in children and young adults, and serotonin syndrome. Second generation antipsychotics (SGAs) have metabolic syndrome issues with weight gain, increase in prolactin, increased waist circumference, increased lipids, and increased glucose. Thus routine monitoring of weight, metabolic labs, etc. is indicated. A general rank ordering of antipsychotics that have the greatest to the least risk of metabolic effects is olanzapine, quetiapine, risperidone, ziprasidone, and aripiprazole. However, weight gain can occur with all of these drugs and considerable variability exists among patients receiving the same drug regarding the risk of metabolic effects. Anti-psychotic agents not only increase the risk of metabolic disorder, they also increase the risk of CVA, akathisia, and movement disorders including EPS or tardive dyskinesia (more common with first generation antipsychotics) and more. Medication Management and Follow-Up - Plan: - Schedule follow-up appointments every 1-3 months to monitor the patient's response to the medication regimen. - Reinforce the importance of avoiding recreational drug use due to potential neurotoxicity and interactions with prescribed medications. 05/06/2024 Elevated blood pressure reading (ICD-10 - R03.0) Learning About High Blood Pressure material was published, High Blood Pressure: Care Instructions material was published 1. Depresison- having increease depression Lexapro 20 mg daily Effexor ER 75 MG daily in am for depresison and anxiety schedule therapy discuss and educated patient reported Seroquel 100 mg at bedtime fatigue in am lowest dose 25 mg dose still tired d/c Seroquel related fatigue in am Add Abilify 5 mg at bedtime for depression, agitation and help anxiety - discuss fatigue with rx educated on all rx monitor B/P 2. Anxiety - Buspar 10 mg three times a day with a meal for anxiety- Vistaril 25 mg up to three times a day PRN hx Vistaril 25 mg - obtain labs PCP 3. Primary Insomnia- sleep hygiene education - Trazodone made him feel tired in am and off next day Melatonin 5 mg OTC AT BEDTIME 4. elevated blood pressure educated on healthy b/p 120/80 monitor b/p at home refer to PCP, Urgent care/ER heart healthy diet and excise limit salt intake limit soda intake and caffiene increase water 5.Cannabis use- educated on decrease to stopping 6. ETOH use- educated on decrease use and risk Recommend decrease/stop cannabis use as it can negatively impact mood, motivation, anxiety, sleep, focus/concentratio n/memory (vigilance, elasticity, processing and attention); can also contribute to development of psychosis. Cannabis/marijuana information: http_s://dana.nih. gov/publications/d rugfacts/cannabis- marijuana http_s://www.TherapeuticsMD/cannabi j-igv-rhwexzjl-mar ijuana-adhd/ http_s://www.ramírez. org/Ixqlm-Rttiwc-U llness/Mental-Heal th-Conditions http_s://psychGCT [employer]ductor.com/depression /sou-ukiofyfhu-skf xuwlf-xl-lhafkkkyh n#treatments http__s://www.nimh .nih.gov/health/to pics/mental-health -medications http__s://www.ramírez .org/About-Mental- Illness/Treatments /Jaoldp-Hftqhg-Cor ications educated on all medications, benefits, side effects and risk, and educated on depression, anxiety, and ADHD, mood d/o and educated on compliance of medications, metabolic and movement d/o education appointment's, continue therapy discussion with patient about course of treatment and patient instructions. education on serotonin syndrome Discussed and educated pt regarding benzodiazepines are generally not intended for prolonged use and that use can cause tolerance, dependence, depression, and associated memory issues including dementias (this list is not exhaustive). Benzodiazepine use is generally not recommended concurrently with pain medications and/or other controlled substances educated on all medications, benefits, side effects and risk, and educated on depression, anxiety, and ADHD, mood d/o and educated on compliance of medications, metabolic and movement d/o education appointment is, continue therapy discussion with patient about course of treatment and patient instructions. education on serotonin syndrome SSRI/SNRI side effects discussed including but not limited to, gastric upset, nausea, vomiting, diarrhea and/or constipation, weight changes, sexual side effects including loss of libido, increased suicidal thoughts/behaviors in children and young adults, and serotonin syndrome. Second generation antipsychotics (SGAs) have metabolic syndrome issues with weight gain, increase in prolactin, increased waist circumference, increased lipids, and increased glucose. Thus routine monitoring of weight, metabolic labs, etc. is indicated. A general rank ordering of antipsychotics that have the greatest to the least risk of metabolic effects is olanzapine, quetiapine, risperidone, ziprasidone, and aripiprazole. However, weight gain can occur with all of these drugs and considerable variability exists among patients receiving the same drug regarding the risk of metabolic effects. Anti-psychotic agents not only increase the risk of metabolic disorder, they also increase the risk of CVA, akathisia, and movement disorders including EPS or tardive dyskinesia (more common with first generation antipsychotics) and more. Medication Management and Follow-Up - Plan: - Schedule follow-up appointments every 1-3 months to monitor the patient's response to the medication regimen. - Reinforce the importance of avoiding recreational drug use due to potential neurotoxicity and interactions with prescribed medications. Plan Of Treatment Medication Medication Name Sig Start Date Stop Date Notes QUEtiapine Fumarate 100 MG 1 tablet at b edtime Orally Once a day for 90 days ARIPiprazole 5 MG 1 tablet Orally Once a day for 30 days 05/06/2024 d/c Seroquel Treatment Notes Assessment Notes PAULIE (generalized anxiety disorder) Learn ing About Generalized Anxiety Disorder material was published, Generalized Anxiety Disorder: Care Instructions material was published, Learning About Transcranial Magnetic Stimulation (TMS) material was published, Learning About Anxiety Disorders material was published MDD (major depressive disord er), recurrent episode, moderate Preventing Depression From Coming Back: Care Instructions material was published, Learning About Depression material was published, Depression Treatment: Care Instructions material was published, Learning About Depression Screening material was published, Learning About How to Get Help During a Mental Health Crisis material was published Primary insomnia Insomnia: Care Instr uctions material was published, Learning About Sleeping Well material was published Marijuana use Marijuana Use: Care Instructions material was published, Learning About Cannabis Use Disorder material was published Panic attack Panic Attacks: Care Instructions material was published Elevated blood pressure reading Learning About High Blood Pressure material was published, High Blood Pressure: Care Instructions material was published Next Appt Details Follow Up: 4 Weeks, Reason: f/u Annmarie Provider Name:Kate Black , 05/26/2024 03:45:00 PM, [address] [facility] [address], [facility] [address], [place], [address], Progress Notes * Mamta URBINA IIIDOB:[birth year] (34 yo M)Acc No.[id number]:05/06/2024 Patient: Mamta BENJAMIN III Provider: NOAH CALLAHAN :1990 A ge:34 Y S ex:Male Date:05/06/2024 Address:[address] [place] [address] Pcp:Fadi Ramirez MD Subjective: * Chief Complaints: * 1 . Fmla. 2. Last couple weeks have been a little rough. * HPI: D epression Screening: PAULIE-7 (2018 Edition) F eeling nervous, anxious, or on edge?Nearly every day, N ot being able to stop or control worrying S everal , W orrying too much about different things M ore than hafl the days, T rouble relaxing M ore than half the days, B eing so restless that it is hard to sit still S ever, B ecoming easily annoyed or irritable M ore than half the days, F eeling afraid as if something awful might happen N early every day. C [place]-Suicide Severity Rating Scale: Suicide Risk (CSRS-screener) i n the past one month Have you wished you were or wished you could go to sleep and not wake up? N o, i n the past one month Have you actually had any thoughts of killing yourself? N o, H ave you ever done anything, started to do anything, or prepared to do anything to end your life? N o. D epression screening: PHQ-9 L ittle interest or pleasure in doing things N early every day, F eeling down, depressed, or hopeless M ore than half the days, T rouble falling or staying asleep, or sleeping too much M ore than half the days, F eeling tired or having little energy N early every day, P oor appetite or overeating S everal , F eeling bad about yourself or that you are a failure, or have let yourself or your family down S everal , T rouble concentrating on things, such as reading the newspaper or watching television S ever, M oving or speaking so slowly that other people could have noticed; or the opposite, being so fidgety or restless that you have been moving around a lot more than usual?Several days, T houghts that you would be better off or of hurting yourself in some way Not at all, T otal Score 1 4, I nterpretation M oderate Depression. I ntervention D epression Screening Findings P ositve, F ollow-Up for Depression M ental health treatment assessment, Patient follow-up to return when and if necessary, S uicide Risk Assessment Performed , A dditional Evaluation for Depression P sychiatric interview and evaluation, N cy of the standardized tool used for adult depression screening: P atient Health Questionnaire (PHQ-9). P ast Psychiatric Hospitalizations: Previous psychiatric hospitalizations P revious Psychiatric Hospitalization N o. P ast History of Suicidal attempt H ave you ever attempted suicide in the past N o. Follow up anxiety and depression chronic since last visit reported 2 week ago I felt off and I took Seroquel and I was having issues getting up in am and if not take rx hard to sleep at night, I am tired no matter what dose I take and I fall asleep 30 min after I take it, and depression and anxiety been mainly at work and if have rough days and try to get things done and get out on time and work over load, and try to ge tup in am and running late for work, I feel sad, down, little h opeless, restless and fidgety today, I do worry when at work if doing a good job and worry outside work what others think of me, a ppetite normal, not having A/V/C hallucinations, I get hyper fixated on work, no paranoia, no diana, no SI/HI little agitated, concentration and focus good I get job done and work on it, energy low, with being tired and not feel like doing things even if not tired,no a bnormal movement reported or noted, I am still using cannabis 1-2 x week 1-2 joint, ETOH use depends on situation and friends with reported 3 shots on weekends denies SI/HI no plans or intent no past attempts no thoughts harm to self or others, passive intrusive thoughts ok to let go if in accident to let go, FH cousin committ hanging, no pyschiatric hosptial, reported gun locked up in house, 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 * ROS: d enies, SOB, Chest pain, no cough, no palpitations denies neck, reported knee joint pain on RX, back- steady gait reported no GI issues GERD no NV/D APPETITE normal denies- urination issues denies seizures, loss conscious, occasional headaches, no tremors, no abnormal movement d/o reported depression, anxiety, sleep issues restless sleep no A/V hallucination, no delusions, no diana or hypomania, no SI/HI, reported little agitation, fatigue in am reported reported seasonal allergies and no sore throat- reported occasional headaches s een PCP dry mouth in am sore throat weight stable. * Medical History: P ast Psychiatric History: Anxiety Disorder,Panic Disorder, abdominal aortic aneurysm: No, atrial fibrillation: No, chronic fatigue syndrome: No, essential tremor: No, hyperlipidemia: No, hypertension: No, Parkinson's disease: No, restless leg syndrome: No, subdural hematoma: No, type 1 diabetes mellitus: No, type 2 diabetes mellitus: No, vitamin B12 deficiency: No, vitamin D deficiency: No. * Social History: T obacco Use: T obacco Control (Standard) T obacco use: N reginamoKyara xiong dditional Findings: Tobacco non-user C urrent nonsmoker. D rug/Alcohol: D rugs H ave you used drugs other than those for medical reasons in the past 12 months??Yes, M ethamphetamine? N o, C rack? N o, E cstacy? N o, P rescription opiates? N o, M arijuana? Y es, K etamine? N o, P CP? N o, I s there a minor (18 years or younger) at risk at home? N o, A re you still using? Y es, D o you want treatment? N o. C affeine I ntake: 2 -3 cups per day. D o you smoke marijuana?: Admits. Do you drink alcohol?: Yes, Socially. AUDIT-C (Standard) D id you have a drink containing alcohol in the past year? Y es, H ow often did you have six or more drinks on one occasion in the past year? 2 to 4 times a month (2 points), H ow many drinks did you have on a typical day when you were drinking in the past year? 1 0 or more drinks (4 points), H ow often did you have a drink containing alcohol in the past year? 2 to 4 times a month (2 points), P oints 8 , I nterpretation P ositive. 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 Y es, A tx household pets? Y es cat and dog. 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 Safety issues A re there any firearms in the house??Yes. A dvance Care Planning A re you your own decision-maker Y es, D o you have Power of Shoder Filler for Health or Medical? N o. S ocial History: Eliza Claros arital Status: S jacque, N umber of Adults in household: 2 , N umber of Children in Household: 0 , L evel of Education: [employer]. * Medications: T aking Meloxicam 15 MG Tablet 1 tablet Oral Once a day , Taking QUEtiapine Fumarate 100 MG Tablet 1 tablet at bedtime Orally Once a day , Notes to Pharmacist: d/c 50 mg dose, Taking hydrOXYzine HCl 25 MG Tablet 1 tablet Orally three times a day As needed, Taking Escitalopram Oxalate 20 MG Tablet 1 tablet Oral once a day , Taking Venlafaxine HCl ER 75 MG Capsule Extended Release 24 Hour 1 capsule in the morning Orally Once a day , Taking busPIRone HCl 10 MG Tablet 1 tablet Oral three times a day , stop date 07/13/2024, Not-Taking Venlafaxine HCl ER 37.5 MG Capsule Extended Release 24 Hour 1 capsule with food Orally Once a day , Not-Taking Sulfamethoxazole-Trimethoprim 800-160 MG Tablet TAKE 1 TABLET BY MOUTH EVERY 12 HOURS Oral , Not-Taking Sulfamethoxazole-Trimethoprim 800-160 MG Tablet Oral , Not- Taking Escitalopram Oxalate 10 MG Tablet TAKE 1 TABLET BY MOUTH DAILY Oral , Not-Taking Meloxicam 15 MG Tablet TAKE 1 TABLET BY MOUTH EVERY DAY Oral , Not-Taking HYDROcodone-Acetaminophen 5-325 MG Tablet Oral , Not-Taking HYDROcodone- Acetaminophen 5-325 MG Tablet TAKE 1-2 TABLETS BY MOUTH EVERY 8 HOURS NEEDED FOR PAIN Oral , Not-Taking oxyCODONE HCl 5 MG Tablet TAKE 1-2 TABLETS BY MOUTH EVERY 6 HOURS NEEDED FOR PAIN Oral , Not-Taking oxyCODONE HCl 5 MG Tablet Oral , Medication List reviewed and reconciled with the patient * Allergies: N .K.D.A. Objective: * Vitals: B P:137/95mm Hg, HR:92/min, Wt:216.8lbs, Wt-k.34 kg, Ht: 69 in, Ht-cm: 175.26 cm, BMI:32.01Index, Body Surface Area: 2.19. * Examination: P sychiatry: Appearance: w ell-groomed, well-nourished, appears stated age. Abnormal body movements: n one. Affect / mood: a ppropriate, full range, anxious,. Aggression: l ow. Anger control: g ood. Attention: g ood. Attitude: c ooperative. Homicidal ideation: n one. Suicidal ideation: n one. Memory status: n o impairment noted. Degree of awareness of surroundings: w ithin normal limits.? Delusions: n o. Hallucinations: n o. Impulse control: g ood. Insight: g ood. Intellectual functioning: a verage. Comprehension - Intellectual function: a verage. Judgement: g ood. Orientation: a wake, alert and oriented x 3. Perceptual disorders: n o perceptual disorder noted. Psychomotor activity: w ithin normal range. Sexual impulse control: g ood. Speech / language: p aurelio grammar used, normal rate, volume, and articulation (RVR), clear and coherent, appropriate pitch/modulation. Thought content: a ppropriate. Thought process: i ntact. Assessment: * Assessment: 1. M DD (major depressive disorder), recurrent episode, moderate - F33.1 (Primary) ?2. G AD (generalized anxiety disorder) - F41.1 3 . P rimary insomnia - F51.01 4 . M arijuana use - F12.90 5 . P anic attack - F41.0 6. E levated blood pressure reading - R03.0 1. Depresison- having incree ase depression Lexapro 20 mg daily Effexor ER 75 MG daily in am for depresison and anxiety schedule therapy discuss and educated patient reported S eroquel 100 mg at bedtime fatigue in am lowest dose 25 mg dose still tired? d/c Seroquel related fatigue in am A dd Abilify 5 mg at bedtime for d epression, agitation and help anxiety - discuss fatigue with rx educated on all rx monitor B/P 2. Anxiety - Buspar 10 mg three times a day with a meal for anxiety- V istaril 25 mg up to three times a day PRN hx Vistaril 25 mg - obtain labs PCP 3. Primary Insomnia- sleep hygiene education - Trazodone made him feel tired in am and off next day Melatonin 5 mg OTC AT BEDTIME 4. elevated blood pressure educated on healthy b/p 120/80 monitor b/p at home refer to PCP, Urgent care/ER heart healthy diet and excise limit salt intake limit soda intake and caffiene increase water 5.Cannabis use- educated on decrease to stopping 6. ETOH use- educated on decrease use and risk Recommend decrease/stop cannabis use as it can negatively impact mood, motivation, anxiety, sleep, focus/concentration/memory (vigilance, elasticity, processing and attention); can also contribute to development of psychosis. Cannabis/marijuana information: http_s://dana.nih.gov/publications/drugfacts/cannabis-marijuana http_s://www.[employer].CloudEngine/tpezfbll-izw-qkqggrus-marijuana-adhd/ http_s://www.ramírez.org/Qpqfy-Dcxaej-Jficiph/Flnzrg-Pmvwww-Bjgwkixtwo http_s://psychcentral.com/depression/rvg-gpjanvpga-rljdunzm-of-depression#treatm ents http__s://www.nimh.nih.gov/health/topics/slyivg-zlkjye-yscizglafyb http__s://www.ramírez.org/Txegc-Gynovx-Jxgidir/Treatments/Mevdja-Pnzpjq-Gvqarpivhly educated on all medications, benefits, side effects and risk, and educated on depression, anxiety, and ADHD, mood d/o and educated on compliance of medications, metabolic and movement d/o education appointment's, continue therapy discussion with patient about course of treatment and patient instructions. education on serotonin syndrome Discussed and educated pt regarding benzodiazepines are generally not intended for prolonged use and that use can cause tolerance, dependence, depression, and associated memory issues including dementias (this list is not exhaustive). Benzodiazepine use is generally not recommended concurrently with pain medications and/or other controlled substances educated on all medications, benefits, side effects and risk, and educated on depression, anxiety, and ADHD, mood d/o and educated on compliance of medications, metabolic and movement d/o education appointment is, continue therapy discussion with patient about course of treatment and patient instructions. education on serotonin syndrome SSRI/SNRI side effects discussed including but not limited to, gastric upset, nausea, vomiting, diarrhea and/or constipation, weight changes, sexual side effects including loss of libido, increased suicidal thoughts/behaviors in children and young adults, and serotonin syndrome. Second generation antipsychotics (SGAs) have metabolic syndrome issues with weight gain, increase in prolactin, increased waist circumference, increased lipids, and increased glucose. Thus routine monitoring of weight, metabolic labs, etc. is indicated. A general rank ordering of antipsychotics that have the greatest to the least risk of metabolic effects is olanzapine, quetiapine, risperidone, ziprasidone, and aripiprazole. However, weight gain can occur with all of these drugs and considerable variability exists among patients receiving the same drug regarding the risk of metabolic effects. Anti-psychotic agents not only increase the risk of metabolic disorder, they also increase the risk of CVA, akathisia, and movement disorders including EPS or tardive dyskinesia (more common with first generation antipsychotics) and more. Medication Management and Follow-Up - Plan: - Schedule follow-up appointments every 1-3 months to monitor the patient's response to the medication regimen. - Reinforce the importance of avoiding recreational drug use due to potential neurotoxicity and interactions with prescribed medications. Plan: * Treatment: 2. G AD (generalized anxiety disorder) Notes: Learning About Generalized Anxiety Disorder material was published, Generalized Anxiety Disorder: Care Instructions material was published, Learning About Transcranial Magnetic Stimulation (TMS) material was published, Learning About Anxiety Disorders material was published 3. P rimla insomnia Notes: Insomnia: Care Instructions material was published, Learning About Sleeping Well material was published 4. M arijuana use Notes: Marijuana Use: Care Instructions material was published, Learning About Cannabis Use Disorder material was published 5. P anic attack Notes: Panic Attacks: Care Instructions material was published 6. E levated blood pressure reading Notes: Learning About High Blood Pressure material was published, High Blood Pressure: Care Instructions material was published * Procedure Codes: 9 6127 BEHAV ASSMT W/SCORE & DOCD/STAND INSTRUMENT, G8950 PREHTN/HTN BP DOC INDCD F/U DOC, 19832 BEHAV ASSMT W/SCORE & DOCD/STAND INSTRUMENT, G8431 CLIN DEPRESSION SCREEN DOC, G8755 MOST RECENT DIASTOLIC BP >= 90MM HG, G8753 MOST RECENT SYSTOLIC BP >= 140MM HG, G2211 VISIT COMPLEXITY INHERENT TO ONGOING CARE RELATED TO A PATIENT'S SINGLE, SERIOUS CONDITION OR A COMPLEX CONDITION * Preventive Medicine: Counseling: B P Management: F IRST HYPERTENSIVE BP READING FOLLOW-UP PLAN: F ollow-up 1 month Follow up with your PCP, Solomon SEO RECOMMENDATION: Solomon seo education, REFERRAL TO ALTERNATIVE / PRIMARY CARE PROVIDER: R eferral to general medical service,?PHYSICAL ACTIVITY RECOMMENDATION: e ducated on healthy b/p 120/80monitor b/p at homerefer to PCP, Urgent care/ERheart healthy diet and exciselimit salt intakelimit soda intake and caffieneincrease water, W EIGHT REDUCTION RECOMMENDATION: W eight-reducing diet education, D IETARY RECOMMENDATIONS: D iet education Dietary Healthy-Heart Diet. A dvance Care Planning D ate of last Advance Care Plannin 05/06/2024 ____ MIPSnone. * Follow Up: 4 Weeks (Reason: f/u Abilify) * Billing Information: * Visit Code: 22643 OFFICE OUTPATIENT VISIT 25 MINUTES DETAILED HISTORY AND EXAM/MODERATE MEDICAL DECISION MAKING. * Procedure Codes: 95168 BEHAV ASSMT W/SCORE & DOCD/STAND INSTRUMENT. G8950 PREHTN/HTN BP DOC INDCD F/U DOC. 70699 BEHAV ASSMT W/SCORE & DOCD/STAND INSTRUMENT. G8431 CLIN DEPRESSION SCREEN DOC. G8755 MOST RECENT DIASTOLIC BP >= 90MM HG. G8753 MOST RECENT SYSTOLIC BP >= 140MM HG. G2211 VISIT COMPLEXITY INHERENT TO ONGOING CARE RELATED TO A PATIENT'S SINGLE, SERIOUS CONDITION OR A COMPLEX CONDITION. 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 History and Physical Notes * HPI (History of Present Illness) Category Sub-Category Detail Notes Category Not es Past Psychiatric Hospitalizations Previous psychiatric hospitalizations Previous Psychiatric Hospitalization: No Follow up anxiety and depression chronic since last visit reported 2 week ago I felt off and I took Seroquel and I was having issues getting up in am and if not take rx hard to sleep at night, I am tired no matter what dose I take and I fall asleep 30 min after I take it, and depression and anxiety been mainly at work and if have rough days and try to get things done and get out on time and work over load, and try to ge tup in am and running late for work, I feel sad, down, little hopeless, restless and fidgety today, I do worry when at work if doing a good job and worry outside work what others think of me, appetite normal, not having A/V/C hallucinations, I get hyper fixated on work, no paranoia, no diana, no SI/HI little agitated, concentration and focus good I get job done and work on it, energy low, with being tired and not feel like doing things even if not tired,no abnormal movement reported or noted, I am still using cannabis 1-2 x week 1-2 joint, ETOH use depends on situation and friends with reported 3 shots on weekends denies SI/HI no plans or intent no past attempts no thoughts harm to self or others, passive intrusive thoughts ok to let go if in accident to let go, FH cousin committ hanging, no pyschiatric hosptial, reported gun locked up in house, 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 ETOH- social when with friends- hx excessive up to 10 shots - smoking- denies labs- PCP drugs- cannabis- 1-2 times week hx bowl or 2 at time, more when with friends HX RX Paxil, Lexapro, Xanax, Buspar, Wellbutrin, Zoloft, Viibyrd (6 weeks- felt numb), Trazodone (fatigue in am) Melatonin (not help), Seroquel (fatigue), Vistaril 25 mg (tired) Past History of Suicidal attempt Have yo u ever attempted suicide in the past: No Depression screening PHQ-9 Little inte rest or pleasure in doing things: Nearly every day Feeling down, depressed, or hopeless: Mo re than half the days Trouble falling or staying a sleep, or sleeping too much: More than half the days Feeling tired or having little energy: N early every day Poor appetite or overeating: Several day s Feeling bad about yourself o r that you are a failure, or have let yourself or your family down: Several days Trouble concentrating on thi ngs, such as reading the newspaper or watching television: Several days Moving or speaking so slowly that other people could have noticed; or the opposite, being so fidgety or restless that you have been moving around a lot more than usual: Several days Thoughts that you would be b tim off or of hurting yourself in some way: Not at all Total Score: 14 Interpretation: Moderate Depression Intervention Depression Screening Findings: P ositve Follow-Up for Depression: [facility] health treatment assessment, Patient follow-up to return when and if necessary Suicide Risk Assessment Performed: Additional Evaluation for Depression: Ps ychiatric interview and evaluation Name of the standardized too l used for adult depression screening:: Patient Health Questionnaire (PHQ-9) Depression Screening PAULIE-7 (2018 Edition) Feelin g nervous, anxious, or on edge: Nearly every day Not being able to stop or control worryi ng: Several days Worrying too much about different things : More than hafl the days Trouble relaxing: More than half the day s Being so restless that it is hard to sit still: Several days Becoming easily annoyed or irritable: Mo re than half the days Feeling afraid as if something awful elmo ht happen: Nearly every day Evangeline-Suicide Severity Rating Scale Suicide Risk (CSRS-screener) in the past one month Have you wished you were or wished you could go to sleep and not wake up?: No in the past one month Have y ou actually had any thoughts of killing yourself?: No Have you ever done anything, started to do anything, or prepared to do anything to end your life?: No Examination Category Sub-Category Detail Notes Category Not es Psychiatry Appearance: well-groomed, we ll-nourished, appears stated age Attitude: cooperative Psychomotor activity: within normal rang e Abnormal body movements: none Attention: good Degree of awareness of surroundings: wit hin normal limits Orientation: awake, alert and pablo ented x 3 Affect / mood: appropriate, full ra nge, anxious, Speech / language: proper grammar used, normal rate, volume, and articulation (RVR), clear and coherent, appropriate pitch/modulation Insight: good Judgement: good Thought process: intact Thought content: appropriate Perceptual disorders: no perceptual diso rder noted Aggression: low Anger control: good Suicidal ideation: none Homicidal ideation: none Intellectual functioning: average Impulse control: good Sexual impulse control: good Memory status: no impairment noted Delusions: no Hallucinations: no Comprehension - Intellectual function: a verage
--- OUTSIDE RECORDS SUMMARY | 2024-05-08 15:39 | XMS_ITS | Clinical Summary ---
Author Organization [facility] [email or web address] [place] Address [address] [place] [address] Care Team Providers Care Senior Medical Transcriptionist Name Role Phone Unavailable Primary Care Provider Unavailabl e Allergies Active Allergy Reactions Criticality Noted Date Comments Clindamycin Rash Low 09/04/2017 Prednisone Anxiety Low 10/04/2018 Medications busPIRone (BUSPAR) 7.5 mg TabletIndications: Anxiety state Take 2 Tablets (15 mg) by mouth 2 times daily. 60 Tablet 2 Active cholecalciferol, Vitamin D3, 50 mcg (2,000 unit) TabletIndications: Vitamin D insufficiency Take 1 Tablet (2,000 Units) by mouth daily. 2 Active PARoxetine HCl (PAXIL) 30 mg tablet Take 1 Tablet (30 mg) by mouth daily. 30 Tablet 3 Active fluticasone propionate (FLONASE) 50 mcg/spray [place], Suspension nasal inhalerIndications :Nasal congestion Administer 2 Sprays in each nostril daily. 16 Gram 3 Active rosuvastatin (Crestor) 20 mg tabletIndications: Hyperlipidemia, unspecified hyperlipidemia type Take 1 Tablet (20 mg) by mouth daily. 30 Tablet 3 Active metFORMIN (GLUCOPHAGE) 500 mg tabletIndications: Type 2 diabetes mellitus without complication, without long-term current use of insulin (CMS/HCC) Take 1 Tablet (500 mg) by mouth 2 times daily with meals. 90 Tablet 1 3 Active Active Problems Problem Noted Date Diagnosed Date Patellofemoral syndrome of right knee 09/04/2022 Lesion of right femur 12/12/2021 Mixed hyperlipidemia 06/08/2020 Elevated liver enzymes 05/14/2020 Insomnia 11/27/2018 Allergic contact dermatitis due to other agents 11/27/2018 Seasonal allergic rhinitis 04/30/2018 Moderate episode of recurrent major depressive d isorder 10/04/2017 Anxiety state 10/04/2017 Resolved Problems Problem Noted Date Diagnosed Date Resolved Date Pneumonia of left lower lobe due to infectious organism 08/17/2020 11/28/2021 Pneumonia due to COVID-19 virus 08/17/2020 11/28/2021 Severe episode of recurrent major depressive disorder, without psychotic features 06/08/202002/2022 Numbness of fingers of both hands 08/30/2018 10/04/2018 Wrist tendonitis 08/06/2018 10/04/2018 Elevated d-dimer 11/28/2021 Encounters Date Type Department Care Team Description 04/10/2024 External Device Data [facility] ABSTRACTION Provider, Abstract from Last 3 Months Immunizations Immunization Administration Dates Next Due (ADACEL/BOOSTRIX)(10 YR UP) TDAP VACCINE, 0.5ML, IM 04/02/2020,02/21/2010,11/16/2009,2009 INFLUENZA VACCINE QUADRIVALE NT 6 MOS UP IM 12/24/2018,12/13/2017 INFLUENZA VACCINE QUADRIVALE NT 6 MOS UP PF IM 11/28/2021,12/16/2019 Influenza Seasonal Unspecifi ed Formulation IM 01/30/2017,01/10/2012,01/17/2011 Influenza Vaccine Split PF ID 01/30/2017, [id number] Influenza Vaccine Tri Split 4+ Im 11/16/2009 Family History Medical History Relation Name Comments Heart defect Brother No Known Problems Father Heart Attack Maternal Grandfather Cancer Maternal Grandmother Camila No Known Problems Mother No Known Problems Paternal Grandfather No Known Problems Paternal Grandmother No Known Problems Sister Relation Name Status Comments Brother Alive Father Alive Maternal Grandfather Maternal Grandmother Camila Mother Alive Paternal Grandfather Alive Paternal Grandmother Alive Sister Alive Social History Tobacco Use Types Packs/Day Years Used Date Smoking Tobacco: Never Smokeless Tobacco: Never Tobacco Cessation:Counseling Given: Not Answered Alcohol Use Standard Drinks/Week Comments Yes 0 (1 standard drink = 0.6 oz pur e alcohol) 1 - 1.5 pint of vodka a week. 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 Oxygen Saturation 97% 02/20/2022 3:16 PM COMPOUNDER HELPER Inhaled Oxygen Concentration - - Weight 94.3 kg (208 lb) 08/02/2023 9:33 AM CDT Height 175.3 cm (5' 9 ) 08/02/2023 9:33 AM CDT Body Mass Index 30.72 08/02/2023 9:33 AM CDT Plan of Treatment Upcoming Encounters Date Type Department Care Team (Late st Contact Info) Description 07/11/2024 8:00 AM CDT Office Visit [facility] [employer] [address] [place] [address] Health Maintenance Due Date Last Done Comments HEPATITIS B VACCINES (1 of 3 - 19+ 3-dose series) 2007 INFLUENZA VACCINE (#1) 2023 , 02/14/2021, 12/16/2019, Additional history exists Pre-Diabetes and Diabetes Screening 11/08/2025 11/08/2022, 06/07/2022, 03/15/2022, Additional history exists DTAP/TDAP/TD VACCINES (5 - Td or Tdap) 04/02/2030 04/02/2020, 02/21/2010, 11/16/2009, Additional history exists HPV VACCINES Aged Out No longer eligi ble based on patient's age to complete this topic PNEUMOCOCCAL VACCINE 0-64 YEARS Aged Out No longer eligible based on patient's age to complete this topic Procedures Procedure Name Priority Date/Time Associated Diagnosis Comments HEMOGLOBIN A1C Routine 11/08/2022 7:10 AM CDT Type 2 diabetes mellitus without complication, without long-term current use of insulin ([facility]) from Last 3 Months or Most Recently Relevant to Health Maintenance Results * (ABNORMAL) HEMOGLOBIN A1C (11/08/2022 7:10 AM CDT) HEMOGLOBIN A1C 5.8(H) <5.7 % of total Hgb [facility] Comment: For someone without known diabetes, a hemoglobin A1c value between 5.7% and 6.4% is consistent with prediabetes and should be confirmed with a follow-up test. For someone with known diabetes, a value <7% indicates that their diabetes is well controlled. A1c targets should be individualized based on duration of diabetes, age, comorbid conditions, and other considerations. This assay result is consistent with an increased risk of diabetes. Currently, no consensus exists regarding use of hemoglobin A1c for diagnosis of diabetes for children. 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 Final Resul t [facility] [phone] [employer] [id number] [address] [facility] [employer] [id number] from Last 3 Months or Most Recently Relevant to Health Maintenance Insurance [employer] OPEN ACCESS * Guarantor: [employer] Account Type Relation to Patient Date of Phone Billing Address Corporate Employer ATTN: OLIVIA TADEO [address] [address] [employer] OPEN ACCESS * Guarantor: [employer] Account Type Relation to Patient Date of Phone Billing Address Corporate Employer ATTN: OLIVIA TADEO [address] [address] Advance Directives For more information, please contact: [phone] * Full Code (Latest Code Status on File) Date Activated Date Inactivated Comments 08/17/2020 10:18 PM 08/19/2020 6:07 PM
--- OUTSIDE RECORDS SUMMARY | 2024-05-08 15:39 | XMS_ITS | Patient Health Record ---
Author Organization [facility] [email or web address] Address [address] [facility] [address] [place] [address] Care Team Providers Care Programming Specialist Name Role Phone Ashley KOTHARI, Fadi Primary Care Provider Kate Barrios Unavailable [phone] REAL HARMON PA-C Unavailab le Allergies No Known Allergies Results Component Value Reference Range Notes UDT Reviewed date:11/09/2023 03:47:03 PM Interpretation: Performing Lab: Notes/Report: THC p 0 - 50 ng/ml Cocaine n 0 - 300 ng/ml Amphetamine n 0 - 1000 ng/ml Buprenorphine (BUP) n 0 - 10 ng/ml Secobarbital (Bar) n 0 - 300 ng/ml Oxazepam (BZO) n 0 - 300 ng/ml 5-pfhllskdwh-5,5-aliflkmf-1,3-diphenylpyrrolidine (CHASIDY P) n 0 - 300 ng/ml Methamphetamine (MET) n 0 - 1000 ng/ml Methylenedioxymethamphetamine (MDMA) n 0 - 500 ng/ml Morphine (MOP 300/[id number]) n 0 - 300 ng/ml Methadone (MTD) n 0 - 300 ng/ml Phencyclidine (PCP) n 0 - 25 ng/ml Propoxyphene (PPX) n 0 - 300 ng/ml Nortriptyline (TCA) n 0 - 1000 ng/ml Oxycodone n 0 - 300 ng/ml Reason For Referral No Information Medications Medication SIG (Take, Route, Frequency, Duration) Notes Start Date End Date Status busPIRone HCl 10 MG 1 tablet Oral three times a day for 90 days 11/15/2023 07/13/2024 Active Escitalopram Oxalate 20 MG 1 tablet Oral once a day for 90 days Active oxyCODONE HCl 5 MG Oral for 6 Days Not-Taking Venlafaxine HCl ER 75 MG 1 capsule in the morning Orally Once a day for 90 days Active HYDROcodone-Acetamino phen 5-325 MG TAKE 1-2 TABLETS BY MOUTH EVERY 8 HOURS NEEDED FOR PAIN Oral for 6 Days Not-Taking ARIPiprazole 5 MG 1 tablet Orally Once a day for 30 days d/c Seroquel 05/06/2024 Active hydrOXYzine HCl 25 MG 1 tablet Orally three times a day for 90 days As needed Active oxyCODONE HCl 5 MG TAKE 1-2 TABLETS BY MOUTH EVERY 6 HOURS NEEDED FOR PAIN Oral for 6 Days Not-Taking Meloxicam 15 MG TAKE 1 TABLET BY MOUTH EVERY DAY Oral for 30 Days Not-Taking Meloxicam 15 MG 1 tablet Oral Once a day for 30 days Active HYDROcodone-Acetamino phen 5-325 MG Oral for 6 [...] 12 HOURS Oral for 5 Days Not-Taking Social History Tobacco Use: Social History Observation Description Date Details (start date - stop date) Never Smoker NA - NA Sex Assigned At : Social History Observation Description Sex Assigned At Male Household Question Answer Notes Marital status: single Number of adults in household: 2 l maria with mother Number of children in household: 0 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 Tobacco Control (Standard) Question Answer Notes Tobacco [...] month (2 points) Points 8 Interpretation Positive Problems Problem Type SNOMED Code ICD Code Onset Dates Problem Status W/U Status Risk Notes Problem 1868064 Primary insomnia (F51.01) Active confirmed Problem 94457261 PAULIE (generalized anxiety disorder) (F41.1) Active confirmed Problem 436191896 MDD (major depressive disorder), recurrent episode, moderate (F33.1) Active confirmed Problem 199630944 Marijuana use (F12.90) Active confirmed Problem 157793874 Panic attack (F41.0) Active confirmed Problem 56912869 Elevated blood pressure reading (R03.0) Active confirmed Vital Signs Heart Rate 92 /min 05/06/2024 Height-cm 175.26 cm 05/06/2024 Blood pressure diastolic 95 mm Hg 05/06/2024 Weight-kg 98.34 kg 05/06/2024 Height 69 in 05/06/2024 Blood pressure systolic 137 mm Hg 05/06/2024 Weight 216.8 lbs 05/06/2024 BMI 32.01 kg/m2 05/06/2024 Encounters Encounter Location Date Provider Diagnosis [facility] [address] [address] 11/09/2023 Kate Therpreston MDD (major depressive disorder), recurrent episode, moderate F33.1 ; PAULIE (generalized anxiety disorder) F41.1 ; Primary insomnia F51.01 and Marijuana use F12.90 [facility] [address] [address] 12/14/2023 Kate Thery MDD (major depressive disorder), recurrent episode, moderate F33.1 ; PAULIE (generalized anxiety disorder) F41.1 ; Primary insomnia F51.01 ; Marijuana use F12.90 and Panic attack F41.0 [facility] [address] [address] 01/01/2024 Kate Thery MDD (major depressive disorder), recurrent episode, moderate F33.1 ; PAULIE (generalized anxiety disorder) F41.1 ; Primary insomnia F51.01 ; Marijuana use F12.90 and Panic attack F41.0 [facility] [address] [address] 02/04/2024 Kate Thery MDD (major depressive disorder), recurrent episode, moderate F33.1 ; PAULIE (generalized anxiety disorder) F41.1 ; Primary insomnia F51.01 ; Marijuana use F12.90 ; Panic attack F41.0 and Elevated blood pressure reading R03.0 [facility] [address] [facility] [address] [place] [address] 04/14/2024 Kate Thery PAULIE (generalized anxiety disorder) F41.1 ; MDD (major depressive disorder), recurrent episode, moderate F33.1 ; Primary insomnia F51.01 ; Marijuana use F12.90 ; Panic attack F41.0 and Elevated blood pressure reading R03.0 [facility] [address] [facility] [address] [place] [address] 05/06/2024 Kate Thery PAULIE (generalized anxiety disorder) F41.1 ; MDD (major depressive disorder), recurrent episode, moderate F33.1 ; Primary insomnia F51.01 ; Marijuana use F12.90 ; Panic attack F41.0 and Elevated blood pressure reading R03.0 [facility] [address] [address] 11/15/2023 Kate Thery PAULIE (generalized anxiety disorder) F41.1 [facility] [address] [facility] [address] [place] [address] 12/14/2023 Kate Thery [facility] [address] [address] 12/24/2023 Kate Thery MDD (major depressive disorder), recurrent episode, moderate F33.1 [facility] [address] [facility] [address] [place] [address] 01/24/2024 Kate Thery MDD (major depressive disorder), recurrent episode, moderate F33.1 [facility] [address] [facility] [address] [place] [address] 01/28/2024 Kate Thery MDD (major depressive disorder), recurrent episode, moderate F33.1 [facility] [address] [facility] [address] [place] [address] 02/22/2024 Kate Thery PAULIE (generalized anxiety disorder) F41.1 [place] [id number] [address] 04/25/2024 Kate Thery Assessments Encounter Date Diagnosis (ICD Code) Assessment Notes Treatment Notes Treatment Clinical Notes Section Notes 11/15/2023 PAULIE (generalized anxiety disorder) (ICD-10 - F41.1) 11/09/2023 PAULIE (generalized anxiety disorder) (ICD-10 - F41.1) Depresison- presently taking Lexapro 20 mg daily Add Effexor ER 37.5 MG daily in am for 2 weeks then increase to Effexor ER 75 MG daily in am for depresison and anxiety monitor B/P Anxiety - Presently taking Buspar 7.5 mg twice a day Increase Buspar 10 mg three times a day with a meal for anxiety obtain labs PCP Primary Insomnia- sleep hygiene education - PAMPLETS given patient will consider therapist in near future Cannabis use- educated on decrease to stopping ETOH use- educated on decrease use and risk Recommend decrease/stop cannabis use as it can negatively impact mood, motivation, anxiety, sleep, focus/concentratio n/memory (vigilance, elasticity, processing and attention); can also contribute to development of psychosis. Cannabis/marijuana information: http_s://dana.nih. gov/publications/d rugfacts/cannabis- marijuana http_s://www.NorSun/cannabi n-ihp-clghkfcl-mar ijuana-adhd/ http_s://www.ramírez. org/Goyyd-Oecujh-N llness/Mental-Heal th-Conditions http_s://[employer]com/depression /bis-frvkiygjm-pvz ojgny-xg-vxdhapwcg n#treatments http__s://www.nimh .nih.gov/health/to pics/mental-health -medications http__s://www.ramírez .org/About-Mental- Illness/Treatments /Fweada-Xtkoqx-Abn ications educated on all medications, benefits, side [...] potential neurotoxicity and interactions with prescribed medications. 11/09/2023 MDD (major depressive disorder), recurrent episode, moderate (ICD-10 - F33.1) Depresison- presently taking Lexapro 20 mg daily Add Effexor ER 37.5 MG daily in am for 2 weeks then increase to Effexor ER 75 MG daily in am for depresison and anxiety monitor B/P Anxiety - Presently taking Buspar 7.5 mg twice a day Increase Buspar 10 mg three times a day with a meal for anxiety obtain labs PCP Primary Insomnia- sleep hygiene education - PAMPLETS given patient will consider therapist in near future Cannabis use- educated on decrease to stopping ETOH use- educated on decrease use and risk Recommend decrease/stop cannabis use as it can negatively impact mood, motivation, anxiety, sleep, focus/concentratio n/memory (vigilance, elasticity, processing and attention); can also contribute to development of psychosis. Cannabis/marijuana information: http_s://dana.nih. gov/publications/d rugfacts/cannabis- marijuana http_s://www.NorSun/cannabGrandis c-hpx-uvqxfcxd-mar ijuana-adhd/ http_s://www.ramírez. org/Qkhuh-Fqkklz-B llness/Mental-Heal th-Conditions http_s://[employer].com/depression /msb-gnuerdfrl-bkj cuodi-fj-nncynjljq n#treatments http__s://www.nim .nih.gov/health/to pics/mental-health -medications http__s://www.ramírez .org/About-Mental- Illness/Treatments /Pgocck-Oxpmca-Nwr ications educated on all medications, benefits, side [...] potential neurotoxicity and interactions with prescribed medications. 12/14/2023 PAULIE (generalized anxiety disorder) (ICD-10 - F41.1) Depresison- Lexapro 20 mg daily Effexor ER 75 MG daily in am for depresison and anxiety schedule therapy Add Seroquel 25 mg at bedtime for depression and help anxiety and sleep educated on all rx monitor B/P Anxiety - Buspar 10 mg three times a day with a meal for anxiety obtain labs PCP Primary Insomnia- sleep hygiene education - Cannabis use- educated on decrease to stopping ETOH use- educated on decrease use and risk Recommend decrease/stop cannabis use as it can negatively impact mood, motivation, anxiety, sleep, focus/concentratio n/memory (vigilance, elasticity, processing and attention); can also contribute to development of psychosis. Cannabis/marijuana information: http_s://dana.nih. gov/publications/d rugfacts/cannabis- marijuana http_s://www.NorSun/cannabi z-uir-kumibmkq-mar ijuana-adhd/ http_s://www.ramírez. org/Fjsjl-Pqrmmw-T llness/Mental-Heal th-Conditions http_s://psychcent [employer].com/depression /ery-srmcniphj-jit wkcfg-jg-udojriypl n#treatments http__s://www.nimh .nih.gov/health/to pics/mental-health -medications http__s://www.ramírez .org/About-Mental- Illness/Treatments /Jepsxi-Keyeuc-Qeo ications educated on all medications, benefits, side [...] potential neurotoxicity and interactions with prescribed medications. 12/14/2023 MDD (major depressive disorder), recurrent episode, moderate (ICD-10 - F33.1) Depresison- Lexapro 20 mg daily Effexor ER 75 MG daily in am for depresison and anxiety schedule therapy Add Seroquel 25 mg at bedtime for depression and help anxiety and sleep educated on all rx monitor B/P Anxiety - Buspar 10 mg three times a day with a meal for anxiety obtain labs PCP Primary Insomnia- sleep hygiene education - Cannabis use- educated on decrease to stopping ETOH use- educated on decrease use and risk Recommend decrease/stop cannabis use as it can negatively impact mood, motivation, anxiety, sleep, focus/concentratio n/memory (vigilance, elasticity, processing and attention); can also contribute to development of psychosis. Cannabis/marijuana information: http_s://dana.nih. gov/publications/d rugfacts/cannabis- marijuana http_s://www.NorSun/cannabi s-zod-kqtxmfza-mar ijuana-adhd/ http_s://www.ramírez. org/Esbph-Qwfjjp-Z llness/Mental-Heal th-Conditions http_s://[employer].com/depression /lsh-digplbone-hin tfmkz-ik-lkijynqbj n#treatments http__s://www.nimh .nih.gov/health/to pics/mental-health -medications http__s://www.ramírez .org/About-Mental- Illness/Treatments /Rrsvik-Ahdgob-Piq ications educated on all medications, benefits, side [...] potential neurotoxicity and interactions with prescribed medications. 12/24/2023 MDD (major depressive disorder), recurrent episode, moderate (ICD-10 - F33.1) 01/01/2024 MDD (major depressive disorder), recurrent episode, moderate (ICD-10 - F33.1) Depresison- Lexapro 20 mg daily Effexor ER 75 MG daily in am for depresison and anxiety schedule therapy no refill needed on Effexor or Lexapro discuss increase Seroquel 50 mg at bedtime for depression, agitation and help anxiety and sleep - discuss fatigue with rx educated on all rx monitor B/P Anxiety - Buspar 10 mg three times a day with a meal for anxiety- no refill needed obtain labs PCP Primary Insomnia- sleep hygiene education - improved with Seroquel Cannabis use- educated on decrease to stopping ETOH use- educated on decrease use and risk Recommend decrease/stop cannabis use as it can negatively impact mood, motivation, anxiety, sleep, focus/concentratio n/memory (vigilance, elasticity, processing and attention); can also contribute to development of psychosis. Cannabis/marijuana information: http_s://dana.nih. gov/publications/d rugfacts/cannabis- marijuana http_s://www.NorSun/cannabi u-rrw-ohorsiaa-mar ijuana-adhd/ http_s://www.ramírez. org/Raphw-Ovxrgt-Z llness/Mental-Heal th-Conditions http_s://psychcent [employer].com/depression /shy-rifpnjwde-tdq qhxdt-hx-jokcforxa n#treatments http__s://www.nimh .nih.gov/health/to pics/mental-health -medications http__s://www.ramírez .org/About-Mental- Illness/Treatments /Xsfizv-Uybsai-Fsy ications educated on all medications, benefits, side [...] potential neurotoxicity and interactions with prescribed medications. 01/24/2024 MDD (major depressive disorder), recurrent episode, moderate (ICD-10 - F33.1) 01/28/2024 MDD (major depressive disorder), recurrent episode, moderate (ICD-10 - F33.1) 02/04/2024 PAULIE (generalized anxiety disorder) (ICD-10 - F41.1) Learning About Generalized Anxiety Disorder material was published, Generalized Anxiety Disorder: Care Instructions material was published, Learning About Transcranial Magnetic Stimulation (TMS) material was published, Learning About Anxiety Disorders material was published Depresison- Lexapro 20 mg daily Effexor ER 75 MG daily in am for depresison and anxiety schedule therapy no refill needed on Effexor or Lexapro discuss and educated Seroquel 50 mg at bedtime for depression, agitation and help anxiety and sleep - discuss fatigue with rx educated on all rx monitor B/P Anxiety - Buspar 10 mg three times a day with a meal for anxiety- no refill needed ADD Vistaril 10 mg up to three times a day PRN hx Vistaril 25 mg - tired obtain labs PCP Primary Insomnia- sleep hygiene education - improved with Seroquel elevated blood pressure educated on healthy b/p 120/80 monitor b/p at home refer to PCP, Urgent care/ER heart healthy diet and excise limit salt intake limit soda intake and caffiene increase water Cannabis use- educated on decrease to stopping ETOH use- educated on decrease use and risk Recommend decrease/stop cannabis use as it can negatively impact mood, motivation, anxiety, sleep, focus/concentratio n/memory (vigilance, elasticity, processing and attention); can also contribute to development of psychosis. Cannabis/marijuana information: http_s://dana.nih. gov/publications/d rugfacts/cannabis- marijuana http_s://www.NorSun/cannabi t-waj-kyrmtawb-mar ijuana-adhd/ http_s://www.ramírez. org/Imraj-Fkkllp-U llness/Mental-Heal th-Conditions http_s://psychcent [employer].com/depression /lgf-wfghheayr-llk vmzvr-rb-wccktxibh n#treatments http__s://www.nimh .nih.gov/health/to pics/mental-health -medications http__s://www.ramírez .org/About-Mental- Illness/Treatments /Yfuzrb-Esafee-Lnp ications educated on all medications, benefits, side [...] potential neurotoxicity and interactions with prescribed medications. 02/04/2024 MDD (major depressive disorder), recurrent episode, moderate (ICD-10 - F33.1) Preventing Depression From Coming Back: Care Instructions material was published, Learning About Depression material was published, Depression Treatment: Care Instructions material was published, Learning About Depression Screening material was published, Learning About How to Get Help During a Mental Health Crisis material was published Depresison- Lexapro 20 mg daily Effexor ER 75 MG daily in am for depresison and anxiety schedule therapy no refill needed on Effexor or Lexapro discuss and educated Seroquel 50 mg at bedtime for depression, agitation and help anxiety and sleep - discuss fatigue with rx educated on all rx monitor B/P Anxiety - Buspar 10 mg three times a day with a meal for anxiety- no refill needed ADD Vistaril 10 mg up to three times a day PRN hx Vistaril 25 mg - tired obtain labs PCP Primary Insomnia- sleep hygiene education - improved with Seroquel elevated blood pressure educated on healthy b/p 120/80 monitor b/p at home refer to PCP, Urgent care/ER heart healthy diet and excise limit salt intake limit soda intake and caffiene increase water Cannabis use- educated on decrease to stopping ETOH use- educated on decrease use and risk Recommend decrease/stop cannabis use as it can negatively impact mood, motivation, anxiety, sleep, focus/concentratio n/memory (vigilance, elasticity, processing and attention); can also contribute to development of psychosis. Cannabis/marijuana information: http_s://dana.nih. gov/publications/d rugfacts/cannabis- marijuana http_s://www.NorSun/cannabi t-ypy-gfcycgqe-mar ijuana-adhd/ http_s://www.ramírez. org/Rswqi-Fhluwf-N llness/Mental-Heal th-Conditions http_s://psychcent [employer].com/depression /xyz-fvjxxahbc-pll ywojl-xz-kzsxkolih n#treatments http__s://www.nimh .nih.gov/health/to pics/mental-health -medications http__s://www.ramírez .org/About-Mental- Illness/Treatments /Rjuxvt-Gcalea-Jer ications educated on all medications, benefits, side [...] neurotoxicity and interactions with prescribed medications. 05/06/2024 PAULIE (generalized anxiety disorder) (ICD-10 - [...] psychosis. Cannabis/marijuana information: http_s://dana.nih. gov/publications/d rugfacts/cannabis- marijuana http_s://www.NorSun/cannabi b-mpj-oclczpet-mar ijuana-adhd/ http_s://www.ramírez. org/Dvbzn-Opitbh-E llness/Mental-Heal th-Conditions http_s://[employer]ant[employer]/depression /dcr-uafpmycza-fne rnawh-xf-cxkdpkbsu n#treatments http__s://www.nimh .nih.gov/health/to pics/mental-health -medications http__s://www.ramírez .org/About-Mental- Illness/Treatments /Zchhut-Nmbydl-Xfh ications educated on all medications, benefits, side [...] potential neurotoxicity and interactions with prescribed medications. 04/14/2024 PAULIE (generalized anxiety disorder) (ICD-10 - F41.1) Learning About Generalized Anxiety Disorder material was published, Generalized Anxiety Disorder: Care Instructions material was published, Learning About Transcranial Magnetic Stimulation (TMS) material was published, Learning About Anxiety Disorders material was published Depresison- having increease depression Lexapro 20 mg daily Effexor ER 75 MG daily in am for depresison and anxiety schedule therapy discuss and educated increase Seroquel 100 mg at bedtime for depression, agitation and help anxiety and sleep - discuss fatigue with rx educated on all rx monitor B/P Anxiety - Buspar 10 mg three times a day with a meal for anxiety- Increase Vistaril 25 mg up to three times a day PRN hx Vistaril 25 mg - tired obtain labs PCP Primary Insomnia- sleep hygiene education - improved with Seroquel elevated blood pressure educated on healthy b/p 120/80 monitor b/p at home refer to PCP, Urgent care/ER heart healthy diet and excise limit salt intake limit soda intake and caffiene increase water Cannabis use- educated on decrease to stopping ETOH use- educated on decrease use and risk Recommend decrease/stop cannabis use as it can negatively impact mood, motivation, anxiety, sleep, focus/concentratio n/memory (vigilance, elasticity, processing and attention); can also contribute to development of psychosis. Cannabis/marijuana information: http_s://dana.nih. gov/publications/d rugfacts/cannabis- marijuana http_s://www.NorSun/cannabi j-yuq-snvpcprb-mar ijuana-adhd/ http_s://www.ramírez. org/Lqoxf-Dwetyx-K llness/Mental-Heal th-Conditions http_s://[employer]ant[employer]/depression /wxe-fyekvgjyx-wok ldfmz-tp-gdjajmlci n#treatments http__s://www.nimh .nih.gov/health/to pics/mental-health -medications http__s://www.ramírez .org/About-Mental- Illness/Treatments /Ilhbnn-Grlxsx-Aaf ications educated on all medications, benefits, side [...] potential neurotoxicity and interactions with prescribed medications. 02/22/2024 PAULIE (generalized anxiety disorder) (ICD-10 - F41.1) 04/14/2024 MDD (major depressive disorder), recurrent episode, moderate (ICD-10 - F33.1) Preventing Depression From Coming Back: Care Instructions material was published, Learning About Depression material was published, Depression Treatment: Care Instructions material was published, Learning About Depression Screening material was published, Learning About How to Get Help During a Mental Health Crisis material was published Depresison- having increease depression Lexapro 20 mg daily Effexor ER 75 MG daily in am for depresison and anxiety schedule therapy discuss and educated increase Seroquel 100 mg at bedtime for depression, agitation and help anxiety and sleep - discuss fatigue with rx educated on all rx monitor B/P Anxiety - Buspar 10 mg three times a day with a meal for anxiety- Increase Vistaril 25 mg up to three times a day PRN hx Vistaril 25 mg - tired obtain labs PCP Primary Insomnia- sleep hygiene education - improved with Seroquel elevated blood pressure educated on healthy b/p 120/80 monitor b/p at home refer to PCP, Urgent care/ER heart healthy diet and excise limit salt intake limit soda intake and caffiene increase water Cannabis use- educated on decrease to stopping ETOH use- educated on decrease use and risk Recommend decrease/stop cannabis use as it can negatively impact mood, motivation, anxiety, sleep, focus/concentratio n/memory (vigilance, elasticity, processing and attention); can also contribute to development of psychosis. Cannabis/marijuana information: http_s://dana.nih. gov/publications/d rugfacts/cannabis- marijuana http_s://www.NorSun/cannabi a-dpw-xjmfgngq-mar ijuana-adhd/ http_s://www.ramírez. org/Ojgcn-Stfmxe-W llness/Mental-Heal th-Conditions http_s://[employer].com/depression /bpk-zeponfefz-cer wihlw-ri-dkiexiahj n#treatments http__s://www.nimh .nih.gov/health/to pics/mental-health -medications http__s://www.ramírez .org/About-Mental- Illness/Treatments /Omegum-Ujfnjh-Wqb ications educated on all medications, benefits, side [...] psychosis. Cannabis/marijuana information: http_s://dana.nih. gov/publications/d rugfacts/cannabis- marijuana http_s://www.NorSun/cannabi a-pog-fkpxzuhp-mar ijuana-adhd/ http_s://www.ramírez. org/Cwkmz-Iocttw-H llness/Mental-Heal th-Conditions http_s://[employer].com/depression /gai-tdtqwzbpw-wrt nweya-jt-sxsgjeomj n#treatments http__s://www.nim .nih.gov/health/to pics/mental-health -medications http__s://www.ramírez .org/About-Mental- Illness/Treatments /Lyyqae-Fydkju-Xpw ications educated on all medications, benefits, side [...] potential neurotoxicity and interactions with prescribed medications. 02/04/2024 Primary insomnia (ICD-10 - F51.01) Insomnia: Care Instructions material was published, Learning About Sleeping Well material was published Depresison- Lexapro 20 mg daily Effexor ER 75 MG daily in am for depresison and anxiety schedule therapy no refill needed on Effexor or Lexapro discuss and educated Seroquel 50 mg at bedtime for depression, agitation and help anxiety and sleep - discuss fatigue with rx educated on all rx monitor B/P Anxiety - Buspar 10 mg three times a day with a meal for anxiety- no refill needed ADD Vistaril 10 mg up to three times a day PRN hx Vistaril 25 mg - tired obtain labs PCP Primary Insomnia- sleep hygiene education - improved with Seroquel elevated blood pressure educated on healthy b/p 120/80 monitor b/p at home refer to PCP, Urgent care/ER heart healthy diet and excise limit salt intake limit soda intake and caffiene increase water Cannabis use- educated on decrease to stopping ETOH use- educated on decrease use and risk Recommend decrease/stop cannabis use as it can negatively impact mood, motivation, anxiety, sleep, focus/concentratio n/memory (vigilance, elasticity, processing and attention); can also contribute to development of psychosis. Cannabis/marijuana information: http_s://dana.nih. gov/publications/d rugfacts/cannabis- marijuana http_s://www.[employer]/cannabi e-uie-enhpgvhq-mar ijuana-adhd/ http_s://www.ramírez. org/Fojak-Nnecsl-V llness/Mental-Heal th-Conditions http_s://psychcent ral.com/depression /pbu-hnpqrrwuh-dhb ooxdc-jw-vgxawpgzq n#treatments http__s://[facility] .nih.gov/health/to pics/mental-health -medications http__s://www.ramírez .org/About-Mental- Illness/Treatments /Covxxx-Oezakc-Rea ications educated on all medications, benefits, side [...] potential neurotoxicity and interactions with prescribed medications. 11/09/2023 Primary insomnia (ICD-10 - F51.01) Depresison- presently taking Lexapro 20 mg daily Add Effexor ER 37.5 MG daily in am for 2 weeks then increase to Effexor ER 75 MG daily in am for depresison and anxiety monitor B/P Anxiety - Presently taking Buspar 7.5 mg twice a day Increase Buspar 10 mg three times a day with a meal for anxiety obtain labs PCP Primary Insomnia- sleep hygiene education - PAMPLETS given patient will consider therapist in near future Cannabis use- educated on decrease to stopping ETOH use- educated on decrease use and risk Recommend decrease/stop cannabis use as it can negatively impact mood, motivation, anxiety, sleep, focus/concentratio n/memory (vigilance, elasticity, processing and attention); can also contribute to development of psychosis. Cannabis/marijuana information: http_s://dana.nih. gov/publications/d rugfacts/cannabis- marijuana http_s://www.[employer]/cannabi y-lsv-ammprmzv-mar ijuana-adhd/ http_s://www.ramírez. org/Ebmmb-Zaundb-Y llness/Mental-Heal th-Conditions http_s://[employer]com/depression /ghd-ooovecgun-dre sguba-hu-iunjuuevb n#treatments http__s://www.nimh .nih.gov/health/to pics/mental-health -medications http__s://www.ramírez .org/About-Mental- Illness/Treatments /Zjigdb-Qpgaua-Hfl ications educated on all medications, benefits, side [...] potential neurotoxicity and interactions with prescribed medications. 01/01/2024 PAULIE (generalized anxiety disorder) (ICD-10 - F41.1) Depresison- Lexapro 20 mg daily Effexor ER 75 MG daily in am for depresison and anxiety schedule therapy no refill needed on Effexor or Lexapro discuss increase Seroquel 50 mg at bedtime for depression, agitation and help anxiety and sleep - discuss fatigue with rx educated on all rx monitor B/P Anxiety - Buspar 10 mg three times a day with a meal for anxiety- no refill needed obtain labs PCP Primary Insomnia- sleep hygiene education - improved with Seroquel Cannabis use- educated on decrease to stopping ETOH use- educated on decrease use and risk Recommend decrease/stop cannabis use as it can negatively impact mood, motivation, anxiety, sleep, focus/concentratio n/memory (vigilance, elasticity, processing and attention); can also contribute to development of psychosis. Cannabis/marijuana information: http_s://dana.nih. gov/publications/d rugfacts/cannabis- marijuana http_s://www.[employer]/cannabi y-wub-tkcmhnen-mar ijuana-adhd/ http_s://www.ramírez. org/Yuycx-Psppho-V llness/Mental-Heal th-Conditions http_s://[employer].com/depression /vsd-mfkrlgxxp-bub qredi-mb-isokgzbli n#treatments http__s://www.nim .nih.gov/health/to pics/mental-health -medications http__s://www.ramírez .org/About-Mental- Illness/Treatments /Nszqbf-Bhbzqq-Bvx ications educated on all medications, benefits, side [...] potential neurotoxicity and interactions with prescribed medications. 12/14/2023 Primary insomnia (ICD-10 - F51.01) Depresison- Lexapro 20 mg daily Effexor ER 75 MG daily in am for depresison and anxiety schedule therapy Add Seroquel 25 mg at bedtime for depression and help anxiety and sleep educated on all rx monitor B/P Anxiety - Buspar 10 mg three times a day with a meal for anxiety obtain labs PCP Primary Insomnia- sleep hygiene education - Cannabis use- educated on decrease to stopping ETOH use- educated on decrease use and risk Recommend decrease/stop cannabis use as it can negatively impact mood, motivation, anxiety, sleep, focus/concentratio n/memory (vigilance, elasticity, processing and attention); can also contribute to development of psychosis. Cannabis/marijuana information: http_s://dana.nih. gov/publications/d rugfacts/cannabis- marijuana http_s://www.[employer]/cannabi z-qkj-zlpxowew-mar ijuana-adhd/ http_s://www.ramírez. org/Yjmyw-Knhoqw-H llness/Mental-Heal th-Conditions http_s://psychcent [employer].com/depression /zmq-yqktbqfgc-vpg gupkr-en-iikmzaclx n#treatments http__s://www.nimh .nih.gov/health/to pics/mental-health -medications http__s://www.ramírez .org/About-Mental- Illness/Treatments /Uwebky-Brkelr-Sgp ications educated on all medications, benefits, side [...] potential neurotoxicity and interactions with prescribed medications. 11/09/2023 Marijuana use (ICD-10 - F12.90) Depresison- presently taking Lexapro 20 mg daily Add Effexor ER 37.5 MG daily in am for 2 weeks then increase to Effexor ER 75 MG daily in am for depresison and anxiety monitor B/P Anxiety - Presently taking Buspar 7.5 mg twice a day Increase Buspar 10 mg three times a day with a meal for anxiety obtain labs PCP Primary Insomnia- sleep hygiene education - PAMPLETS given patient will consider therapist in near future Cannabis use- educated on decrease to stopping ETOH use- educated on decrease use and risk Recommend decrease/stop cannabis use as it can negatively impact mood, motivation, anxiety, sleep, focus/concentratio n/memory (vigilance, elasticity, processing and attention); can also contribute to development of psychosis. Cannabis/marijuana information: http_s://dana.nih. gov/publications/d rugfacts/cannabis- marijuana http_s://www.[employer]/cannabi n-wxm-cwwagtsl-mar ijuana-adhd/ http_s://www.ramírez. org/Sisyy-Kksxxb-Q llness/Mental-Heal th-Conditions http_s://[employer].com/depression /fwt-kgzverukr-ilo vmczj-uf-gvtqijton n#treatments http__s://www.nimh .nih.gov/health/to pics/mental-health -medications http__s://www.ramírez .org/About-Mental- Illness/Treatments /Peffsx-Szjdqn-Siy ications educated on all medications, benefits, side [...] potential neurotoxicity and interactions with prescribed medications. 12/14/2023 Marijuana use (ICD-10 - F12.90) Depresison- Lexapro 20 mg daily Effexor ER 75 MG daily in am for depresison and anxiety schedule therapy Add Seroquel 25 mg at bedtime for depression and help anxiety and sleep educated on all rx monitor B/P Anxiety - Buspar 10 mg three times a day with a meal for anxiety obtain labs PCP Primary Insomnia- sleep hygiene education - Cannabis use- educated on decrease to stopping ETOH use- educated on decrease use and risk Recommend decrease/stop cannabis use as it can negatively impact mood, motivation, anxiety, sleep, focus/concentratio n/memory (vigilance, elasticity, processing and attention); can also contribute to development of psychosis. Cannabis/marijuana information: http_s://dana.nih. gov/publications/d rugfacts/cannabis- marijuana http_s://www.[employer]/cannabi e-fqb-celvzbkb-mar ijuana-adhd/ http_s://www.ramírez. org/Otzlu-Bhaujn-Q llness/Mental-Heal th-Conditions http_s://psychcent [employer].com/depression /hrl-jaxzssmuc-sjn uckzy-ht-igypquubm n#treatments http__s://www.nimh .nih.gov/health/to pics/mental-health -medications http__s://www.ramírez .org/About-Mental- Illness/Treatments /Pnxmuh-Kkkjkc-Jxc ications educated on all medications, benefits, side [...] potential neurotoxicity and interactions with prescribed medications. 01/01/2024 Primary insomnia (ICD-10 - F51.01) Depresison- Lexapro 20 mg daily Effexor ER 75 MG daily in am for depresison and anxiety schedule therapy no refill needed on Effexor or Lexapro discuss increase Seroquel 50 mg at bedtime for depression, agitation and help anxiety and sleep - discuss fatigue with rx educated on all rx monitor B/P Anxiety - Buspar 10 mg three times a day with a meal for anxiety- no refill needed obtain labs PCP Primary Insomnia- sleep hygiene education - improved with Seroquel Cannabis use- educated on decrease to stopping ETOH use- educated on decrease use and risk Recommend decrease/stop cannabis use as it can negatively impact mood, motivation, anxiety, sleep, focus/concentratio n/memory (vigilance, elasticity, processing and attention); can also contribute to development of psychosis. Cannabis/marijuana information: http_s://dana.nih. gov/publications/d rugfacts/cannabis- marijuana http_s://www.[employer]/cannabi z-iey-hpjzgogz-mar ijuana-adhd/ http_s://www.ramírez. org/Mgmcb-Hcypwr-C llness/Mental-Heal th-Conditions http_s://[employer]/depression /idy-dhrnnrupi-jfb kccmp-jl-lxfnwouzr n#treatments http__s://www.nimh .nih.gov/health/to pics/mental-health -medications http__s://www.ramírez .org/About-Mental- Illness/Treatments /Tdiqia-Uorupi-Fjo ications educated on all medications, benefits, side [...] potential neurotoxicity and interactions with prescribed medications. 02/04/2024 Marijuana use (ICD-10 - F12.90) Marijuana Use: Care Instructions material was published, Learning About Cannabis Use Disorder material was published Depresison- Lexapro 20 mg daily Effexor ER 75 MG daily in am for depresison and anxiety schedule therapy no refill needed on Effexor or Lexapro discuss and educated Seroquel 50 mg at bedtime for depression, agitation and help anxiety and sleep - discuss fatigue with rx educated on all rx monitor B/P Anxiety - Buspar 10 mg three times a day with a meal for anxiety- no refill needed ADD Vistaril 10 mg up to three times a day PRN hx Vistaril 25 mg - tired obtain labs PCP Primary Insomnia- sleep hygiene education - improved with Seroquel elevated blood pressure educated on healthy b/p 120/80 monitor b/p at home refer to PCP, Urgent care/ER heart healthy diet and excise limit salt intake limit soda intake and caffiene increase water Cannabis use- educated on decrease to stopping ETOH use- educated on decrease use and risk Recommend decrease/stop cannabis use as it can negatively impact mood, motivation, anxiety, sleep, focus/concentratio n/memory (vigilance, elasticity, processing and attention); can also contribute to development of psychosis. Cannabis/marijuana information: http_s://dana.nih. gov/publications/d rugfacts/cannabis- marijuana http_s://www.[employer]/cannabi j-nom-vaxryntt-mar ijuana-adhd/ http_s://www.ramírez. org/Quify-Wbdaeo-F llness/Mental-Heal th-Conditions http_s://[employer].com/depression /ruh-wuqohofaz-pfl chyfw-jg-xiitpncrv n#treatments http__s://www.[facility] .nih.gov/health/to pics/mental-health -medications http__s://www.ramírez .org/About-Mental- Illness/Treatments /Ewanpp-Gheizj-Gcb ications educated on all medications, benefits, side [...] psychosis. Cannabis/marijuana information: http_s://dana.nih. gov/publications/d rugfacts/cannabis- marijuana http_s://www.[employer]/cannabi c-ugt-krdsslhr-mar ijuana-adhd/ http_s://www.ramírez. org/Atagd-Lcjcbv-Q llness/Mental-Heal th-Conditions http_s://psychcent ral.com/depression /tlb-fgykaexny-jzp pxezq-xc-janubsrvh n#treatments http__s://[facility] .nih.gov/health/to pics/mental-health -medications http__s://www.ramírez .org/About-Mental- Illness/Treatments /Ittinq-Ikrvnf-Vnh ications educated on all medications, benefits, side [...] potential neurotoxicity and interactions with prescribed medications. 04/14/2024 Primary insomnia (ICD-10 - F51.01) Insomnia: Care Instructions material was published, Learning About Sleeping Well material was published Depresison- having increease depression Lexapro 20 mg daily Effexor ER 75 MG daily in am for depresison and anxiety schedule therapy discuss and educated increase Seroquel 100 mg at bedtime for depression, agitation and help anxiety and sleep - discuss fatigue with rx educated on all rx monitor B/P Anxiety - Buspar 10 mg three times a day with a meal for anxiety- Increase Vistaril 25 mg up to three times a day PRN hx Vistaril 25 mg - tired obtain labs PCP Primary Insomnia- sleep hygiene education - improved with Seroquel elevated blood pressure educated on healthy b/p 120/80 monitor b/p at home refer to PCP, Urgent care/ER heart healthy diet and excise limit salt intake limit soda intake and caffiene increase water Cannabis use- educated on decrease to stopping ETOH use- educated on decrease use and risk Recommend decrease/stop cannabis use as it can negatively impact mood, motivation, anxiety, sleep, focus/concentratio n/memory (vigilance, elasticity, processing and attention); can also contribute to development of psychosis. Cannabis/marijuana information: http_s://dana.nih. gov/publications/d rugfacts/cannabis- marijuana http_s://www.[employer]/cannabi z-tkf-sevezihq-mar ijuana-adhd/ http_s://www.ramírez. org/Rsjhm-Ytsyvh-V llness/Mental-Heal th-Conditions http_s://psychcent [employer].com/depression /thn-ctelfjfek-uwf batgh-oj-hxulqounn n#treatments http__s://www.nimh .nih.gov/health/to pics/mental-health -medications http__s://www.ramírez .org/About-Mental- Illness/Treatments /Fbrhhm-Hdrpir-Dnc ications educated on all medications, benefits, side [...] potential neurotoxicity and interactions with prescribed medications. 04/14/2024 Marijuana use (ICD-10 - F12.90) Marijuana Use: Care Instructions material was published, Learning About Cannabis Use Disorder material was published Depresison- having increease depression Lexapro 20 mg daily Effexor ER 75 MG daily in am for depresison and anxiety schedule therapy discuss and educated increase Seroquel 100 mg at bedtime for depression, agitation and help anxiety and sleep - discuss fatigue with rx educated on all rx monitor B/P Anxiety - Buspar 10 mg three times a day with a meal for anxiety- Increase Vistaril 25 mg up to three times a day PRN hx Vistaril 25 mg - tired obtain labs PCP Primary Insomnia- sleep hygiene education - improved with Seroquel elevated blood pressure educated on healthy b/p 120/80 monitor b/p at home refer to PCP, Urgent care/ER heart healthy diet and excise limit salt intake limit soda intake and caffiene increase water Cannabis use- educated on decrease to stopping ETOH use- educated on decrease use and risk Recommend decrease/stop cannabis use as it can negatively impact mood, motivation, anxiety, sleep, focus/concentratio n/memory (vigilance, elasticity, processing and attention); can also contribute to development of psychosis. Cannabis/marijuana information: http_s://dana.nih. gov/publications/d rugfacts/cannabis- marijuana http_s://www.[employer]Sun/cannabi x-qyy-tsalyjtv-mar ijuana-adhd/ http_s://www.ramírez. org/Jgtzk-Xjpkyt-L llness/Mental-Heal th-Conditions http_s://[employer]com/depression /feg-gxqscrmkf-rix lxncc-nw-kljtulidf n#treatments http__s://www.nimh .nih.gov/health/to pics/mental-health -medications http__s://www.ramírez .org/About-Mental- Illness/Treatments /Tkbkwv-Jxtxft-Iyq ications educated on all medications, benefits, side [...] potential neurotoxicity and interactions with prescribed medications. 02/04/2024 Panic attack (ICD-10 - F41.0) Panic Attacks: Care Instructions material was published Depresison- Lexapro 20 mg daily Effexor ER 75 MG daily in am for depresison and anxiety schedule therapy no refill needed on Effexor or Lexapro discuss and educated Seroquel 50 mg at bedtime for depression, agitation and help anxiety and sleep - discuss fatigue with rx educated on all rx monitor B/P Anxiety - Buspar 10 mg three times a day with a meal for anxiety- no refill needed ADD Vistaril 10 mg up to three times a day PRN hx Vistaril 25 mg - tired obtain labs PCP Primary Insomnia- sleep hygiene education - improved with Seroquel elevated blood pressure educated on healthy b/p 120/80 monitor b/p at home refer to PCP, Urgent care/ER heart healthy diet and excise limit salt intake limit soda intake and caffiene increase water Cannabis use- educated on decrease to stopping ETOH use- educated on decrease use and risk Recommend decrease/stop cannabis use as it can negatively impact mood, motivation, anxiety, sleep, focus/concentratio n/memory (vigilance, elasticity, processing and attention); can also contribute to development of psychosis. Cannabis/marijuana information: http_s://dana.nih. gov/publications/d rugfacts/cannabis- marijuana http_s://www.[employer]Sun/cannabi r-wxo-wfnaboot-mar ijuana-adhd/ http_s://www.ramírez. org/Hikcq-Hahabj-B llness/Mental-Heal th-Conditions http_s://[employer].com/depression /xhh-gxjdhrztk-qao jkmmx-yz-lxbmfxssd n#treatments http__s://www.nim .nih.gov/health/to pics/mental-health -medications http__s://www.ramírez .org/About-Mental- Illness/Treatments /Tjdcvn-Paeiuv-Pvy ications educated on all medications, benefits, side [...] psychosis. Cannabis/marijuana information: http_s://dana.nih. gov/publications/d rugfacts/cannabis- marijuana http_s://www.[employer]Sun/cannabi s-fkn-futlwiyo-mar ijuana-adhd/ http_s://www.ramírez. org/Tbjyt-Rvjeft-D llness/Mental-Heal th-Conditions http_s://psychcent [employer].com/depression /sma-dkkadxfuq-zvv mudpy-to-wxinoqjrz n#treatments http__s://www.nimh .nih.gov/health/to pics/mental-health -medications http__s://www.ramírez .org/About-Mental- Illness/Treatments /Pnotrq-Lwtvdk-Bhx ications educated on all medications, benefits, side [...] potential neurotoxicity and interactions with prescribed medications. 01/01/2024 Marijuana use (ICD-10 - F12.90) Depresison- Lexapro 20 mg daily Effexor ER 75 MG daily in am for depresison and anxiety schedule therapy no refill needed on Effexor or Lexapro discuss increase Seroquel 50 mg at bedtime for depression, agitation and help anxiety and sleep - discuss fatigue with rx educated on all rx monitor B/P Anxiety - Buspar 10 mg three times a day with a meal for anxiety- no refill needed obtain labs PCP Primary Insomnia- sleep hygiene education - improved with Seroquel Cannabis use- educated on decrease to stopping ETOH use- educated on decrease use and risk Recommend decrease/stop cannabis use as it can negatively impact mood, motivation, anxiety, sleep, focus/concentratio n/memory (vigilance, elasticity, processing and attention); can also contribute to development of psychosis. Cannabis/marijuana information: http_s://dana.nih. gov/publications/d rugfacts/cannabis- marijuana http_s://www.[employer]Sun/cannabi k-ilf-kdoeroet-mar ijuana-adhd/ http_s://www.ramírez. org/Nqxnf-Nzrfyn-Z llness/Mental-Heal th-Conditions http_s://[employer].com/depression /sra-qmidicvuv-uvc clugx-gq-bvinwjfee n#treatments http__s://www.nimh .nih.gov/health/to pics/mental-health -medications http__s://www.ramírez .org/About-Mental- Illness/Treatments /Nbdjtl-Mhrlbu-Iuu ications educated on all medications, benefits, side [...] potential neurotoxicity and interactions with prescribed medications. 12/14/2023 Panic attack (ICD-10 - F41.0) Depresison- Lexapro 20 mg daily Effexor ER 75 MG daily in am for depresison and anxiety schedule therapy Add Seroquel 25 mg at bedtime for depression and help anxiety and sleep educated on all rx monitor B/P Anxiety - Buspar 10 mg three times a day with a meal for anxiety obtain labs PCP Primary Insomnia- sleep hygiene education - Cannabis use- educated on decrease to stopping ETOH use- educated on decrease use and risk Recommend decrease/stop cannabis use as it can negatively impact mood, motivation, anxiety, sleep, focus/concentratio n/memory (vigilance, elasticity, processing and attention); can also contribute to development of psychosis. Cannabis/marijuana information: http_s://dana.nih. gov/publications/d rugfacts/cannabis- marijuana http_s://www.NorSun/cannabGrandis v-sur-dsbgkxmc-mar ijuana-adhd/ http_s://www.ramírez. org/Yzoma-Bqnqft-D llness/Mental-Heal th-Conditions http_s://[employer].com/depression /iwj-qyvnftaqv-jqa kszbf-ft-cupcsxyjk n#treatments http__s://www.nimh .nih.gov/health/to pics/mental-health -medications http__s://www.ramírez .org/About-Mental- Illness/Treatments /Xkbomi-Qgfthi-Dvz ications educated on all medications, benefits, side [...] potential neurotoxicity and interactions with prescribed medications. 01/01/2024 Panic attack (ICD-10 - F41.0) Depresison- Lexapro 20 mg daily Effexor ER 75 MG daily in am for depresison and anxiety schedule therapy no refill needed on Effexor or Lexapro discuss increase Seroquel 50 mg at bedtime for depression, agitation and help anxiety and sleep - discuss fatigue with rx educated on all rx monitor B/P Anxiety - Buspar 10 mg three times a day with a meal for anxiety- no refill needed obtain labs PCP Primary Insomnia- sleep hygiene education - improved with Seroquel Cannabis use- educated on decrease to stopping ETOH use- educated on decrease use and risk Recommend decrease/stop cannabis use as it can negatively impact mood, motivation, anxiety, sleep, focus/concentratio n/memory (vigilance, elasticity, processing and attention); can also contribute to development of psychosis. Cannabis/marijuana information: http_s://dana.nih. gov/publications/d rugfacts/cannabis- marijuana http_s://www.NorSun/cannabi a-dah-hglqxtml-mar ijuana-adhd/ http_s://www.ramírez. org/Kaorl-Rsguri-Y llness/Mental-Heal th-Conditions http_s://psychcent [employer].com/depression /pan-sdhyfbweg-kzf pmmfp-do-mmziphcpw n#treatments http__s://www.nimh .nih.gov/health/to pics/mental-health -medications http__s://www.ramírez .org/About-Mental- Illness/Treatments /Smddii-Vjqknu-Ybu ications educated on all medications, benefits, side [...] psychosis. Cannabis/marijuana information: http_s://dana.nih. gov/publications/d rugfacts/cannabis- marijuana http_s://www.NorSun/cannabi z-wqu-fedjmiaa-mar ijuana-adhd/ http_s://www.ramírez. org/Gzbhh-Qbzeop-S llness/Mental-Heal th-Conditions http_s://[employer]/depression /mhw-pahgjwyqo-gld mdmjz-eb-xvhlyoxrb n#treatments http__s://www.nimh .nih.gov/health/to pics/mental-health -medications http__s://www.ramírez .org/About-Mental- Illness/Treatments /Sasaas-Hlhvim-Rtc ications educated on all medications, benefits, side [...] potential neurotoxicity and interactions with prescribed medications. 02/04/2024 Elevated blood pressure reading (ICD-10 - R03.0) Learning About High Blood Pressure material was published, High Blood Pressure: Care Instructions material was published Depresison- Lexapro 20 mg daily Effexor ER 75 MG daily in am for depresison and anxiety schedule therapy no refill needed on Effexor or Lexapro discuss and educated Seroquel 50 mg at bedtime for depression, agitation and help anxiety and sleep - discuss fatigue with rx educated on all rx monitor B/P Anxiety - Buspar 10 mg three times a day with a meal for anxiety- no refill needed ADD Vistaril 10 mg up to three times a day PRN hx Vistaril 25 mg - tired obtain labs PCP Primary Insomnia- sleep hygiene education - improved with Seroquel elevated blood pressure educated on healthy b/p 120/80 monitor b/p at home refer to PCP, Urgent care/ER heart healthy diet and excise limit salt intake limit soda intake and caffiene increase water Cannabis use- educated on decrease to stopping ETOH use- educated on decrease use and risk Recommend decrease/stop cannabis use as it can negatively impact mood, motivation, anxiety, sleep, focus/concentratio n/memory (vigilance, elasticity, processing and attention); can also contribute to development of psychosis. Cannabis/marijuana information: http_s://dana.nih. gov/publications/d rugfacts/cannabis- marijuana http_s://www.NorSun/cannabi q-emz-cfophnku-mar ijuana-adhd/ http_s://www.ramírez. org/Gxnim-Mwmnpd-P llness/Mental-Heal th-Conditions http_s://Bantr/depression /jor-nfcrusksm-jlz doojr-xy-fgkxzjvyn n#treatments http__s://www.nimh .nih.gov/health/to pics/mental-health -medications http__s://www.ramírez .org/About-Mental- Illness/Treatments /Jgxatg-Gyfoqy-Aei ications educated on all medications, benefits, side [...] potential neurotoxicity and interactions with prescribed medications. 04/14/2024 Panic attack (ICD-10 - F41.0) Panic Attacks: Care Instructions material was published Depresison- having increease depression Lexapro 20 mg daily Effexor ER 75 MG daily in am for depresison and anxiety schedule therapy discuss and educated increase Seroquel 100 mg at bedtime for depression, agitation and help anxiety and sleep - discuss fatigue with rx educated on all rx monitor B/P Anxiety - Buspar 10 mg three times a day with a meal for anxiety- Increase Vistaril 25 mg up to three times a day PRN hx Vistaril 25 mg - tired obtain labs PCP Primary Insomnia- sleep hygiene education - improved with Seroquel elevated blood pressure educated on healthy b/p 120/80 monitor b/p at home refer to PCP, Urgent care/ER heart healthy diet and excise limit salt intake limit soda intake and caffiene increase water Cannabis use- educated on decrease to stopping ETOH use- educated on decrease use and risk Recommend decrease/stop cannabis use as it can negatively impact mood, motivation, anxiety, sleep, focus/concentratio n/memory (vigilance, elasticity, processing and attention); can also contribute to development of psychosis. Cannabis/marijuana information: http_s://dana.nih. gov/publications/d rugfacts/cannabis- marijuana http_s://www.NorSun/cannabi s-hfi-ykhloclj-mar ijuana-adhd/ http_s://www.ramírez. org/Lbwrh-Ecphwz-Z llness/Mental-Heal th-Conditions http_s://[employer].com/depression /spt-unzqycrws-fjx jmqpo-up-vnhbsvczq n#treatments http__s://www.[facility] .nih.gov/health/to pics/mental-health -medications http__s://www.ramírez .org/About-Mental- Illness/Treatments /Bcoltf-Klrrjl-Ite ications educated on all medications, benefits, side [...] potential neurotoxicity and interactions with prescribed medications. 04/14/2024 Elevated blood pressure reading (ICD-10 - R03.0) Learning About High Blood Pressure material was published, High Blood Pressure: Care Instructions material was published Depresison- having increease depression Lexapro 20 mg daily Effexor ER 75 MG daily in am for depresison and anxiety schedule therapy discuss and educated increase Seroquel 100 mg at bedtime for depression, agitation and help anxiety and sleep - discuss fatigue with rx educated on all rx monitor B/P Anxiety - Buspar 10 mg three times a day with a meal for anxiety- Increase Vistaril 25 mg up to three times a day PRN hx Vistaril 25 mg - tired obtain labs PCP Primary Insomnia- sleep hygiene education - improved with Seroquel elevated blood pressure educated on healthy b/p 120/80 monitor b/p at home refer to PCP, Urgent care/ER heart healthy diet and excise limit salt intake limit soda intake and caffiene increase water Cannabis use- educated on decrease to stopping ETOH use- educated on decrease use and risk Recommend decrease/stop cannabis use as it can negatively impact mood, motivation, anxiety, sleep, focus/concentratio n/memory (vigilance, elasticity, processing and attention); can also contribute to development of psychosis. Cannabis/marijuana information: http_s://dana.nih. gov/publications/d rugfacts/cannabis- marijuana http_s://www.NorSun/cannabi n-lmf-xzajhnsj-mar ijuana-adhd/ http_s://www.ramírez. org/Fhxao-Ijkfft-V llness/Mental-Heal th-Conditions http_s://[employer].com/depression /rpv-vmsnflnqo-lpy hemaf-cg-zqatjjvtq n#treatments http__s://www.nimh .nih.gov/health/to pics/mental-health -medications http__s://www.ramírez .org/About-Mental- Illness/Treatments /Xxvavx-Sfoveb-Xxh ications educated on all medications, benefits, side [...] psychosis. Cannabis/marijuana information: http_s://dana.nih. gov/publications/d rugfacts/cannabis- marijuana http_s://www.NorSun/cannabi n-jqt-qtmsraoy-mar ijuana-adhd/ http_s://www.ramírez. org/Gvkxs-Ohedwo-W llness/Mental-Heal th-Conditions http_s://psychcent [employer].com/depression /wuz-wiwhfvcvn-tac lxcjv-bt-sqqakgloo n#treatments http__s://www.nimh .nih.gov/health/to pics/mental-health -medications http__s://www.ramírez .org/About-Mental- Illness/Treatments /Wigxkc-Yxcqoe-Psi ications educated on all medications, benefits, side [...] potential neurotoxicity and interactions with prescribed medications. 02/04/2024 Other Quetiapine Oral Tablet (QUETIAPINE - ORAL) material was published, Hydroxyzine Oral Tablet (HYDROXYZINE HYDROCHLORIDE - ORAL) material was published Depresison- Lexapro 20 mg daily Effexor ER 75 MG daily in am for depresison and anxiety schedule therapy no refill needed on Effexor or Lexapro discuss and educated Seroquel 50 mg at bedtime for depression, agitation and help anxiety and sleep - discuss fatigue with rx educated on all rx monitor B/P Anxiety - Buspar 10 mg three times a day with a meal for anxiety- no refill needed ADD Vistaril 10 mg up to three times a day PRN hx Vistaril 25 mg - tired obtain labs PCP Primary Insomnia- sleep hygiene education - improved with Seroquel elevated blood pressure educated on healthy b/p 120/80 monitor b/p at home refer to PCP, Urgent care/ER heart healthy diet and excise limit salt intake limit soda intake and caffiene increase water Cannabis use- educated on decrease to stopping ETOH use- educated on decrease use and risk Recommend decrease/stop cannabis use as it can negatively impact mood, motivation, anxiety, sleep, focus/concentratio n/memory (vigilance, elasticity, processing and attention); can also contribute to development of psychosis. Cannabis/marijuana information: http_s://dana.nih. gov/publications/d rugfacts/cannabis- marijuana http_s://www.NorSun/cannabi t-ati-rlrmjkfd-mar ijuana-adhd/ http_s://www.ramírez. org/Qvfwp-Nkyelx-Y llness/Mental-Heal th-Conditions http_s://[employer].com/depression /cci-wagcglknn-foc rzpbc-yh-byxrzfwrw n#treatments http__s://www.nimh .nih.gov/health/to pics/mental-health -medications http__s://www.ramírez .org/About-Mental- Illness/Treatments /Lqiabt-Vqaztt-Ega ications educated on all medications, benefits, side [...] interactions with prescribed medications. Plan Of Treatment Next Appt Details Provider Name:Kate Black , 05/26/2024 03:45:00 PM, [address] [facility] [address], [facility] [address], [place], [address], Insurance Providers Payer Name Payer Address Payer Phone Subscriber Number Group Number Insured Name Patient Relationship to Insured Coverage Start Date Coverage End Date Karan RIVERA [id number] [place] [address] [id number] Mamta Luis Self - patient is the insured Medical (General) History Medical History History ICD Code Past Psychiatric History: Anxiety Disord er,Panic Disorder abdominal aortic aneurysm: No atrial fibrillation: No chronic fatigue syndrome: No essential tremor: No hyperlipidemia: No hypertension: No Parkinson's disease: No restless leg syndrome: No subdural hematoma: No type 1 diabetes mellitus: No type 2 diabetes mellitus: No vitamin B12 deficiency: No vitamin D deficiency: No Surgical History Surgery Date(Month/Year) arthroscopic surgery rt knee 11/2022 Hospitalization History Reason Date(Month/Year) spider bite 09/2023
--- OUTSIDE RECORDS SUMMARY | 2024-05-08 15:40 | XMS_ITS ---
Author Organization [facility] [employer] [facility] Address [facility] [facility] [address] [place] [address] Care Team Providers Care Zoo Veterinarian Name Role Phone Fadi Ramirez MD Primary Care Provider Niia Kate Mahoney Unavailable [phone] REAL HARMON PA-C Unavailab le REASON FOR VISIT FMLA Social History Sex Assigned At : Social History Observation Description Sex Assigned At Male Encounters Encounter Location Date Provider Diagnosis [facility] [place] [id number] [facility] [address] [place] [address] 04/25/2024 Kate Black Plan Of Treatment Next Appt Details Provider Name:Kate Black , 05/26/2024 03:45:00 PM, [address], [facility] [address], [place], [address], Progress Notes * Mamta URBINA IIIDOB:[birth year] (34 yo M)Acc No.[id number]:04/25/2024 Patient: Harlan Mamta HENNESSY III :1990 A ge:34 Y S ex:Male Address:[address] [place], [address] * true * Date: Generated for Printi ng/Faxing/eTransmitting on: 0 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
--- OUTSIDE RECORDS SUMMARY | 2024-05-08 15:40 | XMS_ITS ---
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 Name Role Phone Fadi Ramirez MD Primary Care Provider Kate Barrios Unavailable [phone] REAL HARMON PA-C Unavailab le Allergies No Known Allergies REASON FOR VISIT f/u rx Medications Medication SIG (Take, Route, Frequency, Duration) Notes Start Date End Date Status hydrOXYzine HCl 25 MG 1 tablet Orally three times a day for 90 days As needed Active QUEtiapine Fumarate 100 MG 1 tablet at bedtime Orally Once a day for 90 days d/c 50 mg dose Active Meloxicam 15 MG Oral for 30 Days Active oxyCODONE HCl 5 MG Oral for 6 Days Not-Taking busPIRone HCl 10 MG 1 tablet Oral three times a day for 90 days 11/15/2023 07/13/2024 Active Venlafaxine HCl ER 75 MG 1 capsule in the morning Orally Once a day for 90 days Active Escitalopram Oxalate 20 MG 1 tablet Oral once a day for 90 days Active oxyCODONE HCl 5 MG TAKE 1-2 TABLETS BY MOUTH EVERY 6 HOURS NEEDED FOR PAIN Oral for 6 Days Not-Taking HYDROcodone-Acetamino phen 5-325 MG TAKE 1-2 TABLETS BY MOUTH EVERY 8 HOURS NEEDED FOR PAIN Oral for 6 Days Not-Taking HYDROcodone-Acetamino phen 5-325 MG Oral for 6 Days Not-Taking Venlafaxine HCl ER 37.5 MG 1 capsule with food Orally Once a day for 14 days 11/09/2023 Not-Taking Meloxicam 15 MG TAKE 1 TABLET BY MOUTH EVERY DAY Oral for 30 Days Not-Taking Escitalopram Oxalate 10 MG TAKE 1 TABLET BY MOUTH DAILY Oral for 30 Days Not-Taking Sulfamethoxazole-Trim ethoprim 800-160 MG Oral for 5 Days Not-T aking Sulfamethoxazole-Trim ethoprim 800-160 MG TAKE 1 TABLET BY MOUTH EVERY 12 HOURS Oral for 5 Days Not-Taking Social History Sex Assigned At : Social History Observation Description Sex Assigned At Male Encounters Encounter Location Date Provider Diagnosis [facility] [address] [address] 04/14/2024 Kate Black PAULIE (generalized anxiety disorder) F41.1 ; MDD (major depressive disorder), recurrent episode, moderate F33.1 ; Primary insomnia F51.01 ; Marijuana use F12.90 ; Panic attack F41.0 and Elevated blood pressure reading R03.0 Assessments Encounter Date Diagnosis (ICD Code) Assessment Notes Treatment Notes Treatment Clinical Notes Section Notes 04/14/2024 PAULIE (generalized anxiety disorder) (ICD-10 - [...] psychosis. Cannabis/marijuana information: http_s://dana.nih. gov/publications/d rugfacts/cannabis- marijuana http_s://www.[employer]/cannabi g-pze-olgdhfle-mar ijuana-adhd/ http_s://www.ramírez. org/Bbkrq-Lrjdmh-S llness/Mental-Heal th-Conditions http_s://psychFarmLink.com/depression /spz-allqpjtza-iov sazoj-tt-aobkgkolj n#treatments http__s://www.nim .nih.gov/health/to pics/mental-health -medications http__s://www.ramírez .org/About-Mental- Illness/Treatments /Seqgqp-Djobzx-Rxb ications educated on all medications, benefits, side [...] neurotoxicity and interactions with prescribed medications. 04/14/2024 MDD (major depressive disorder), recurrent episode, [...] psychosis. Cannabis/marijuana information: http_s://dana.nih. gov/publications/d rugfacts/cannabis- marijuana http_s://www.[employer]ophie [employer]/cannabi o-dnm-ltqqrcyo-mar ijuana-adhd/ http_s://www.ramírez. org/Nvech-Tkjyau-N llness/Mental-Heal th-Conditions http_s://psychcent AutoNavi.com/depression /jzi-bvnmahxkp-gxu yvuzo-kt-jiovojlwu n#treatments http__s://www.[facility] .nih.gov/health/to pics/mental-health -medications http__s://www.ramírez .org/About-Mental- Illness/Treatments /Svvpuj-Ildamr-Pdn ications educated on all medications, benefits, side [...] psychosis. Cannabis/marijuana information: http_s://dana.nih. gov/publications/d rugfacts/cannabis- marijuana http_s://www.[employer]/cannabi d-qvy-dwccittx-mar ijuana-adhd/ http_s://www.ramírez. org/Jwnpj-Ahdhnf-E llness/Mental-Heal th-Conditions http_s://psychcent AutoNavi.com/depression /iub-cfvrcbqri-sxo eomzu-hh-oixqzgcfx n#treatments http__s://www.nimh .nih.gov/health/to pics/mental-health -medications http__s://www.ramírez .org/About-Mental- Illness/Treatments /Dapffk-Ufivmr-Ksa ications educated on all medications, benefits, side [...] psychosis. Cannabis/marijuana information: http_s://dana.nih. gov/publications/d rugfacts/cannabis- marijuana http_s://www.[employer]/cannabi c-juy-yzfixykx-mar ijuana-adhd/ http_s://www.ramírez. org/Zchsh-Jtwuiq-N llness/Mental-Heal th-Conditions http_s://[employer]vent[employer].com/depression /kme-ayzeafqic-hyz qzddx-lu-kgxnygepy n#treatments http__s://www.nimh .nih.gov/health/to pics/mental-health -medications http__s://www.ramírez .org/About-Mental- Illness/Treatments /Ncmnlg-Nmehoy-Ese ications educated on all medications, benefits, side [...] psychosis. Cannabis/marijuana information: http_s://dana.nih. gov/publications/d rugfacts/cannabis- marijuana http_s://www.[employer]/cannabi p-wey-vzyvlbqk-mar ijuana-adhd/ http_s://www.ramírez. org/Ilzva-Kijnir-I llness/Mental-Heal th-Conditions http_s://psychFarmLink.com/depression /bso-yhxpkhrtb-yrf icena-sj-kcuysqiur n#treatments http__s://www.nimh .nih.gov/health/to pics/mental-health -medications http__s://www.ramírez .org/About-Mental- Illness/Treatments /Nzfmpb-Iyfhmb-Fjo ications educated on all medications, benefits, side [...] psychosis. Cannabis/marijuana information: http_s://dana.nih. gov/publications/d rugfacts/cannabis- marijuana http_s://www.[employer]/cannabi h-sjv-jfjgjxgh-mar ijuana-adhd/ http_s://www.ramírez. org/Smvns-Wfarvq-E llness/Mental-Heal th-Conditions http_s://psychcent AutoNavi.com/depression /psf-whtppshxx-xui nmxix-al-bjfvneijx n#treatments http__s://www.nimh .nih.gov/health/to pics/mental-health -medications http__s://www.ramírez .org/About-Mental- Illness/Treatments /Hgemye-Cunnzv-Cet ications educated on all medications, benefits, side [...] Name Sig Start Date Stop Date Notes hydrOXYzine HCl 25 MG 1 tablet Orally th ree times a day for 90 days QUEtiapine Fumarate 100 MG 1 tablet at b edtime Orally Once a day for 90 days d/c 50 mg dose busPIRone HCl 10 MG 1 tablet Oral three times a day for 90 days 11/15/2023 07/13/2024 Venlafaxine HCl ER 75 MG 1 capsule in th e morning Orally Once a day for 90 days Escitalopram Oxalate 20 MG 1 tablet Oral once a day for 90 days Treatment Notes Assessment Notes PAULIE (generalized anxiety [...] was published Next Appt Details Follow Up: 3 Weeks, Reason: f/u increase Seroquel Provider Name:Kate Black , 05/26/2024 03:45:00 PM, [address], [facility] [address], [place], [address], Progress Notes * Mamta URBINA IIIDOB:[birth year] (34 yo M)Acc No.[id number]:04/14/2024 Patient: Mamta BENJAMIN III Provider: Michelle BLACK PMHNP :1990 A ge:34 Y S ex:Male Date:04/14/2024 Address:[address] [place] [address] Pcp:Fadi Ramirez MD Subjective: * Chief Complaints: * 1 . F/u rx. * HPI: P ast Psychiatric Hospitalizations: Previous psychiatric hospitalizations P revious Psychiatric Hospitalization N o. P ast History of Suicidal attempt H ave you ever attempted suicide in the past N o. Follow up anxiety and depression chronic since last visit reported last week no energy and I left work ealry and took off Sunday and felt like moving slow and not able to do things, I felt better over weekend and today was good at work, I feel sad, down, hopeless, adn noted restless and fidgety today, I do worry a little, sleep not to bad I go to bed regular and I average 8 hours, and over weekend 12 hours, and appetite same, not having A/V/c hallucinations, I get hyper fixated on work, no paranoia, no diana, no SI/HI I get a little agitated, concentration and focus descent I focus on things and help worry, energy low, I am getting out and doing things, tolerating rx no s/e no abnormal movement reported or noted, I have had more depression I am still using cannabis 1-2 x week 1-2 joint, ETOH use depends on situation and friends with reported 1 times a week, I do not drink alone, denies SI/HI no plans or intent no past attempts no thoughts harm to self or others, passive intrusive thoughts ok to let go if in accident to let go, FH cousin committ hanging, no pyschiatric hosptial, reported gun locked up in house, 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 D epression screening: Intervention D epression Screening Findings P ositve,?Follow-Up for Depression M ental health treatment assessment, Patient follow-up to return when and if necessary, S uicide Risk Assessment Performed , A dditional Evaluation for Depression P sychiatric interview and evaluation, N cy of the standardized tool used for adult depression screening: [facility] (PHQ-[facility]). * ROS: d enies, SOB, Chest pain, no cough, no palpitations denies neck, reported knee joint pain on RX, back- steady gait reported no GI issues GERD no NV/D APPETITE normal denies- urination issues denies seizures, loss conscious, occasional headaches, no tremors, no abnormal movement d/o reported depression, anxiety, improved sleep issues and improved restless sleep no A/V hallucination, no delusions, no diana or hypomania, no SI/HI, reported little agitation, fatigue in am reported reported seasonal allergies and no sore throat- reported occasional headaches s een PCP dry mouth in am weight stable. * Medical History: P ast Psychiatric History: Anxiety Disorder,Panic Disorder, abdominal aortic aneurysm: No, atrial fibrillation: No, chronic fatigue syndrome: No, essential tremor: No, hyperlipidemia: No, hypertension: No, Parkinson's disease: No, restless leg syndrome: No, subdural hematoma: No, type 1 diabetes mellitus: No, type 2 diabetes mellitus: No, vitamin B12 deficiency: No, vitamin D deficiency: No. * Medications: T christian QUEtiapine Fumarate 50 MG Tablet 1 tablet at bedtime Orally Once a day , Notes to Pharmacist: d/c 25 mg dose, Taking Meloxicam 15 MG Tablet Oral , Taking Escitalopram Oxalate 20 MG Tablet 1 tablet Oral once a day , Taking Venlafaxine HCl ER 75 MG Capsule Extended Release 24 Hour 1 capsule in the morning Orally Once a day , Taking hydrOXYzine HCl 10 MG Tablet 1 tablet Orally three times a day , Taking busPIRone HCl 10 MG Tablet 1 tablet Oral three times a day , stop date 05/22/2024, Not-Taking Venlafaxine HCl ER 37.5 MG Capsule Extended Release 24 Hour 1 capsule with food Orally Once a day , Not-Taking Sulfamethoxazole-Trimethoprim 800-160 MG Tablet TAKE 1 TABLET BY MOUTH EVERY 12 HOURS Oral , Not-Taking Sulfamethoxazole- Trimethoprim 800-160 MG Tablet Oral , Not-Taking Escitalopram Oxalate 10 MG Tablet TAKE 1 TABLET BY MOUTH DAILY Oral , Not-Taking Meloxicam 15 MG Tablet TAKE 1 TABLET BY MOUTH EVERY DAY Oral , Not-Taking HYDROcodone-Acetaminophen 5-325 MG Tablet Oral , Not- Taking HYDROcodone-Acetaminophen 5-325 MG Tablet TAKE 1-2 TABLETS BY MOUTH EVERY 8 HOURS NEEDED FOR PAIN Oral , Not-Taking oxyCODONE HCl 5 MG Tablet TAKE 1-2 TABLETS BY MOUTH EVERY 6 HOURS NEEDED FOR PAIN Oral , Not-Taking oxyCODONE HCl 5 MG Tablet Oral , Medication List reviewed and reconciled with the patient * Allergies: N .K.D.A. Objective: * Vitals: * Examination: P sychiatry: Appearance: w ell-groomed, well-nourished, appears stated age. Abnormal body movements: n one. Affect / mood: a ppropriate, full range, anxious, depressed. Aggression: l ow. Anger control: g ood. [...] E levated blood pressure reading - R03.0 Depresison- having increease depression L exapro 20 mg daily Effexor ER 75 MG daily in am for depresison and anxiety schedule therapy discuss and educated increase Seroquel 100 mg at bedtime for depression, agitation and help anxiety and sleep - d iscuss fatigue with rx educated on all rx monitor B/P Anxiety - Buspar 10 mg three times a day with a meal for anxiety- I ncrease Vistaril 25 mg up to three times [...] to development of psychosis. Cannabis/marijuana information: http_s://dana.nih.gov/publications/drugfacts/cannabis-marijuana http_s://www.[employer]/gdmpmhvo-ope-yavztlhi-marijuana-adhd/ http_s://www.ramírez.org/Mabxw-Yvonnw-Yzidbik/Ayylzb-Lgxsnx-Rcusgfxnah http_s://psychMakersKitral.com/depression/luu-jnpvfehjw-hdpkvnrd-of-depression#treatm ents http__s://www.nim.nih.gov/health/topics/wyizra-ncxgnv-bqpvaysytae http__s://www.ramírez.org/Qagoe-Gcupov-Bvifehi/Treatments/Uhymqv-Yvehrk-Qfzdsaaqjer educated on all medications, benefits, side effects [...] Treatment: 2. G AD (generalized anxiety disorder) Start hydrOXYzine HCl Tablet, 25 MG, 1 tablet, Orally, three times a day As needed, 90 days, 270 Tablet, Refills 0; R efill busPIRone HCl Tablet, 10 MG, 1 tablet, Oral, three times a day, 90 days, 270, Refills 0. Notes: Learning About Generalized Anxiety Disorder material was published, Generalized Anxiety Disorder: Care Instructions material was published, Learning About Transcranial Magnetic Stimulation (TMS) material was published, Learning About Anxiety Disorders material was published 3. P rimary insomnia Notes: Insomnia: Care Instructions material was [...] 6127 BEHAV ASSMT W/SCORE & DOCD/STAND INSTRUMENT, G2211 VISIT COMPLEXITY INHERENT TO ONGOING CARE RELATED TO A PATIENT'S SINGLE, SERIOUS CONDITION OR A COMPLEX CONDITION * Follow Up: 3 Weeks (Reason: f/u increase Seroquel) * Billing Information: * Visit Code: 98119 OFFICE OUTPATIENT VISIT 25 MINUTES DETAILED HISTORY AND EXAM/MODERATE MEDICAL DECISION MAKING. * Procedure Codes: 32869 BEHAV ASSMT W/SCORE & DOCD/STAND INSTRUMENT. G2211 VISIT COMPLEXITY INHERENT TO ONGOING CARE RELATED TO A PATIENT'S SINGLE, SERIOUS CONDITION OR A COMPLEX CONDITION. * MATIC RIVETER Sign off status: Completed true * Provider: NOAH CALLAHAN Date: 0 04/14/2024 Generated for Alexis saravia/Alvina/Arsenitting on: 0 05/08/2024 03:40 PM PNEUMATIC RIVETER History and Physical Notes * HPI (History of Present Illness) Category Sub-Category Detail Notes Category Not es Past Psychiatric Hospitalizations Previous psychiatric hospitalizations Previous Psychiatric Hospitalization: No Follow up anxiety and depression chronic since last visit reported last week no energy and I left work ealry and took off Sunday and felt like moving slow and not able to do things, I felt better over weekend and today was good at work, I feel sad, down, hopeless, adn noted restless and fidgety today, I do worry a little, sleep not to bad I go to bed regular and I average 8 hours, and over weekend 12 hours, and appetite same, not having A/V/c hallucinations, I get hyper fixated on work, no paranoia, no diana, no SI/HI I get a little agitated, concentration and focus descent I focus on things and help worry, energy low, I am getting out and doing things, tolerating rx no s/e no abnormal movement reported or noted, I have had more depression I am still using cannabis 1-2 x week 1-2 joint, ETOH use depends on situation and friends with reported 1 times a week, I do not drink alone, denies SI/HI no plans or intent no past attempts no thoughts harm to self or others, passive intrusive thoughts ok to let go if in accident to let go, FH cousin committ hanging, no pyschiatric hosptial, reported gun locked up in house, 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 health treatment assessment, Patient follow-up to return when and if necessary Suicide Risk Assessment Performed: Additional Evaluation for De pression: Psychiatric interview and evaluation Name of the standardized too l used for adult depression screening:: Patient Health Questionnaire (PHQ-9) Examination Category Sub-Category Detail Notes Category Not es Psychiatry Appearance: well-groomed, we ll-nourished, appears stated age Attitude: cooperative Psychomotor activity: within normal rang e Abnormal body movements: none Attention: good Degree of awareness of surroundings: wit hin normal limits Orientation: awake, alert and pablo ented x 3 Affect / mood: appropriate, full ra nge, anxious, depressed Speech / language: proper grammar used, normal [...]
[2024-05-08 16:36] LABS: Influenza A QL RT-PCR Negative (Negative); Influenza B QL RT-PCR Negative (Negative); RSV RNA, RT-PCR Negative (Negative); SARS-CoV-2 RNA PCR Negative (Negative)
== END 2024-05-08 15:37 | disposition home or self-care (01) ==
LOC: ANHLAB 15:37
PROVIDERS: PCP Family Medicine; Visit Provider Family Medicine
DX: J06.9 Acute upper respiratory infection, unspecified (principal); Z20.822 Contact with and (suspected) exposure to COVID-19
CPT/HCPCS: 87637

== ENCOUNTER 2024-05-14 15:19 | Outpatient (CLI) | payer OTHER, SELFPAY ==
--- NOTE | ~2024-05-14 | XR_ITS ---
CHEST RADIOGRAPH, PA AND LATERAL CLINICAL HISTORY: R05.9 - Cough, unspecified . COMPARISON: None available TECHNIQUE: PA and lateral views of the chest. FINDINGS The cardiomediastinal silhouette is unremarkable. The lungs are clear. Visualized osseous structures and soft tissues are unremarkable. IMPRESSION: No focal infiltrate or effusion. Reviewed, dictated and finalized at location A. RICT RANGER
== END 2024-05-14 15:20 | disposition home or self-care (01) ==
LOC: MICIMG 15:21
PROVIDERS: PCP Family Medicine; Visit Provider Physician Assistant Medical
DX: R05.9 Cough, unspecified (principal); R06.02 Shortness of breath
CPT/HCPCS: 71046

== ENCOUNTER 2025-01-07 14:15 | Outpatient (CLI) | payer OTHER, SELFPAY ==
--- NOTE | ~2025-01-07 | XR_ITS ---
XR_[id number]_CR Indication: M54.2 - Cervicalgia Comparison: None Findings: The vertebral heights are intact. No fracture or subluxation. Moderate loss of disc height C5-6 and C6-7. Soft tissues unremarkable Impression: No acute abnormality. Reviewed, dictated and finalized at location P. Impression: No acute abnormality.
== END 2025-01-07 14:16 | disposition home or self-care (01) ==
LOC: MICIMG 14:16
PROVIDERS: PCP Family Medicine; Visit Provider Physician Assistant Medical
DX: M54.2 Cervicalgia (principal)
CPT/HCPCS: 72040